=== PATIENT | female | born 1985 | race Caucasian/White ===

== ENCOUNTER 2024-02-06 01:16 | Emergency (ER) | payer OTHER, SELFPAY ==
[2024-02-06 01:18] VITALS: BP 185/110
[2024-02-06 02:24] VITALS: BMI 34.7
--- NOTE | 2024-02-06 02:52 | ED.GENMED ---
History of Present Illness
<RAVINDRA Cash - Last Filed: 02/06/24 05:30>
General
Chief Complaint: Back Pain
Source: patient and records
Time Seen by Provider: 02/06/24 02:37
Travel History
Have you had any contact with someone who has COVID-19?: No
Do you have any symptoms of coronavirus? Fever > 100 degrees, chills, cough, shortness of breath, sore throat, loss of taste or smell, muscle aches, or headache?: No
History of Present Illness
History of Present Illness:
38 year old female with hx of seizures on lamictal, hypothyroidism, constipation, back pain s/p discectomy on 10/07/23 who presents with bilateral flank pain that began at 1999. Pt states she initially had abdominal cramping at 170Tuesday,
which she attributed to not eating anything that day. States she only had a cup of coffee in the morning and a bottled water throughout the day. At 1999, she had sudden onset of bilateral flank pain that is constant, stabbing, sharp. At times, pain
radiates to the epigastric region bilaterally. She has not taken anything for the pain. She has not felt this pain before. She reports associated nausea and vomiting this evening. Denies fever/chills, chest pain, heartburn, dysuria, hematuria,
diarrhea. She states she has a hx of constipation and has a BM 3 times a month. Admits to decreased appetite for the past couple of days. Reports SOB secondary to feeling anxious. LMP 1.5 weeks ago, regular.
Past History
<RAVINDRA Cash - Last Filed: 02/06/24 05:30>
Past History
ED Past Medical History: Seizures and Hyperthyroidism
ED Past Surgical History: Other (Thyroidectomy)
Social History
Tobacco: Non-smoker
Alcohol: None
Personal: Single
Living: with family
Employment: Employed
Family History
Family History: Other (Family history of diverticulosis); Negative Diabetes
Review of Systems
<ST ShreyaHI - Last Filed: 02/06/24 05:30>
Review of Systems
Allergies reviewed?: Yes
All Other Systems: ROS reviewed and negative except as documented in HPI and ROS
Constitutional: Reports no symptoms
EENT: Reports no symptoms
Cardiac: Reports no symptoms
ABD/GI: Reports abdominal pain, nausea, vomiting and constipated
: Reports no symptoms
Musculoskeletal: Reports back pain
Skin: Reports no symptoms
Neurological: Reports no symptoms
Endocrine: Reports no symptoms
Hematologic/Lymphatic: Reports no symptoms
Psychiatric: Reports anxiety
Phy Exam
<RAVINDRA Cash - Last Filed: 02/06/24 05:30>
General Physical Exam
General Presentation: mild distress
General age: appears stated age
General Skin: warm and dry
General Habitus: obese
General Mental: alert
General Hydration: appears well hydrated
Cardiovascular Exam
Cardiovascular Exam: regular rate/rhythm, no edema, no gallop and no murmur
Pulmonary Exam
Pulmonary Exam: lungs clear, no respiratory distress, no rales, no crackles, no rhonchi, no wheezing and no cough
Gastrointestinal Exam
Gastrointestinal Exam: normal bowel sounds, soft, no pulsatile mass, cva tenderness (bilaterally) and other (moderate epigastric tenderness to palpation)
Skin Exam
Skin Exam: normal color, warm/dry and other (midline vertical incision to lower back)
Psychiatric Exam
Psychiatric Exam: anxious
Course
<RAVINDRA Cash - Last Filed: 02/06/24 05:30>
Orders/Labs/Results
Orders:
Orders
02/06/24 02:35
Test Result ONCE
02/06/24 02:44
Complete Blood Count/With Diff Urgent
Comprehensive Metabolic Panel Urgent
HCG, Serum Qualitative Screen Urgent
Lipase Urgent
02/06/24 03:26
0.9% Sodium Chloride 1000 ml [Nss] 1,000 ml IV BOLUS
Ketorolac [Toradol] 30 mg IV NOW STA
Ondansetron Injectable [Zofran] 4 mg IV NOW STA
02/06/24 03:27
US Abdomen Complete/Upper Urgent
Comment:
Reason For Exam: acute epigastric RUQ pain
02/06/24 04:30
Urinalysis Reflex To Culture Urgent
Date Specimen was Collected: 02/06/24
Time Specimen was Collected: 02:29
Urine Microscopic Reflex Cult Urgent
Urine Culture Urgent
DAKOTAH Source: U
Specimen Description:
Date Specimen was Collected: 02/06/24
Time Specimen was Collected: 02:29
02/06/24 05:29
Pantoprazole [Protonix IV] 40 mg IV NOW STA
Abnormal Lab Results
02/06/24 02/06/24
02:44 04:30
Hct 36.8 L %
(37.0-47.0)
Monocytes % 10.0 H %
(1.7-9.3)
Lipase 310 H U/L
(23-300)
Urine Ketones Trace A
(Negative)
Ur Occult Blood Reflex Trace A
(Negative)
Leukocyte Esterase Rfl Trace A
(Negative)
Urine WBC (Reflex) 11-15 A /HPF
(0-5)
Urine Bacteria (Reflex) Many A
(Negative)
02/06/24 02:44
02/06/24 02:44
Vital Signs
Initial and Last Documented VS:
Initial Vital Signs
Temp Pulse Resp BP Pulse Ox
98.7 F 94 26 185/110 100
02/06/24 01:18 02/06/24 01:18 02/06/24 01:18 02/06/24 01:18 02/06/24 01:18
Last Documented Vital Signs
Temp Pulse Resp BP Pulse Ox
98.7 F 76 18 118/76 97
02/06/24 01:18 02/06/24 05:07 02/06/24 05:07 02/06/24 05:07 02/06/24 05:07
<María Akhtar DO - Last Filed: 02/06/24 05:37>
Orders/Labs/Results
Orders:
Orders
02/06/24 02:35
Test Result ONCE
02/06/24 02:44
Complete Blood Count/With Diff Urgent
Comprehensive Metabolic Panel Urgent
HCG, Serum Qualitative Screen Urgent
Lipase Urgent
02/06/24 03:26
0.9% Sodium Chloride 1000 ml [Nss] 1,000 ml IV BOLUS
Ketorolac [Toradol] 30 mg IV NOW STA
Ondansetron Injectable [Zofran] 4 mg IV NOW STA
02/06/24 03:27
US Abdomen Complete/Upper Urgent
Comment:
Reason For Exam: acute epigastric RUQ pain
02/06/24 04:30
Urinalysis Reflex To Culture Urgent
Date Specimen was Collected: 02/06/24
Time Specimen was Collected: 02:29
Urine Microscopic Reflex Cult Urgent
Urine Culture Urgent
DAKOTAH Source: U
Specimen Description:
Date Specimen was Collected: 02/06/24
Time Specimen was Collected: 02:29
02/06/24 05:29
Pantoprazole [Protonix IV] 40 mg IV NOW STA
Abnormal Lab Results
02/06/24 02/06/24
02:44 04:30
Hct 36.8 L %
(37.0-47.0)
Monocytes % 10.0 H %
(1.7-9.3)
Lipase 310 H U/L
(23-300)
Urine Ketones Trace A
(Negative)
Ur Occult Blood Reflex Trace A
(Negative)
Leukocyte Esterase Rfl Trace A
(Negative)
Urine WBC (Reflex) 11-15 A /HPF
(0-5)
Urine Bacteria (Reflex) Many A
(Negative)
02/06/24 02:44
02/06/24 02:44
Vital Signs
Initial and Last Documented VS:
Initial Vital Signs
Temp Pulse Resp BP Pulse Ox
98.7 F 94 26 185/110 100
02/06/24 01:18 02/06/24 01:18 02/06/24 01:18 02/06/24 01:18 02/06/24 01:18
Last Documented Vital Signs
Temp Pulse Resp BP Pulse Ox
98.7 F 76 18 118/76 97
02/06/24 01:18 02/06/24 05:07 02/06/24 05:07 02/06/24 05:07 02/06/24 05:07
<RAVINDRA Cash - Last Filed: 02/06/24 05:30>
MDM/Problems Addressed
Differential Diagnosis Includes:
pancreatitis, nephrolithiasis, cholecystitis, biliary colic
MDM/Problems Addressed:
38 year old female who presents with bilateral flank pain radiating to the epigastric region that began at 1999.
Chronic conditions affecting care: Neurological disorder (seizures) and Psychiatric illness (anxiety, depression)
<RAVINDRA Cash - Last Filed: 02/06/24 05:30>
*Critical Care Note
Total Time (30-74mins, 75-104mins- exclusive of procedures): Not Applicable
<María Akhtar DO - Last Filed: 02/06/24 05:37>
*Radiology
Radiology exam reviewed: radiology read reviewed
*Pulse Oximetry
Patient hypoxic: no
ED Attending Note
<RAVINDRA Cash - Last Filed: 02/06/24 05:30>
-
Portions of this chart may have been created with voice recognition software.� Occasional wrong word or��sound alike� substitutions may have occurred due to the inherent limitations of voice recognition software.
<María Akhtar DO - Last Filed: 02/06/24 05:37>
ED Attending Note
Patient seen and examined by attending physician: Yes
I performed the substantive portion of visit, reviewed & personally made and approve the management plan that is documented in note by myself or YISEL.: Yes
I performed a history and physical exam of patient and discussed management with resident, I reviewed resident's note and agree with documented findings and plan of care.: Yes
ED Attending Note:
This is a 38-year-old obese woman who complains of bilateral mid to lower flank pain, bilateral back pain that began yesterday evening, persisted in nature. Bilateral back pain wraps around to her upper abdomen with intermittent sharp stabbing
epigastric discomfort along with generalized upper abdominal aching pain.
She does have history of chronic low back pain/lumbar radiculopathy but states her lower back pain has been markedly improved/resolved after lumbar discectomy September of this year.
Current back pain feels quite different from her previous lower back pain.
She does admit to having difficulty getting comfortable tonight but pain is not necessarily worse with movement. She denies leg pain or weakness nor numbness.
She does admit to intermittent episodes of vomiting which she states is a common occurrence when she has pain. She denies feeling nauseous. She has had no hematemesis.
Passed a normal bowel movement 1 day ago.
She denies dysuria and urgency and or hematuria.
She denies chest pain or coughing or shortness of breath.
She has not been taking anything for pain.
Last menstrual period 1 and half weeks ago, normal and on time. She denies risk of .
GENERAL: 38-year-old woman appears her stated age, awake and alert, appears moderately uncomfortable, mildly restless but cooperative. Moderately hypertensive initially, hypertension has near normalized without intervention.
EYE: anicteric
NECK: Supple, nontender, no meningismus, no significant adenopathy.
ENT: oral mucosa is moist. No rhinorrhea.
CARDIAC: Regular rate and rhythm. no murmur.
LUNGS: Clear breath sounds bilaterally, no acute respiratory distress, no wheezes/rales/rhonchi
ABDOMEN: Rotund, soft, nondistended, mild tenderness epigastric as well as right upper quadrant, no r/g, no cvat. normoactive BS.
BACK: Mild bilateral lower lumbar tenderness to palpation. There is no midline tenderness. Straight leg raising is negative bilaterally.
NEUROLOGICAL: Alert and oriented x3, no focal neuro deficits. Gait is steady.
SKIN: Warm and dry, normal color, skin intact. No rash.
MUSCULOSKELETAL: No C/C/E. peripheral pulses are full and equal b/l. No palpable tenderness.
PSYCH: Normal and appropriate interaction.
Concern for acute cholecystitis, acute pancreatitis, other consideration is renal colic/kidney stone, pyelonephritis, low back musculoskeletal pain.
Thus far CBC is unremarkable.
Chemistries and urinalysis are pending.
Will medicate for pain and nausea with Toradol and Zofran initiate IV fluids.
Will plan for abdominal ultrasound. Depending on results and ultrasound will consider CT.
02/06/2024 0530 AM
Patient is pain-free and comfortable after an IV dose of Toradol. Resting comfortably.
Chemistries show minimally elevated lipase of 310. Urinalysis shows many bacteria, 11-15 WBCs, negative RBCs but this is a contaminated specimen with greater than 30 squamous epithelial cells. She continues to have no UTI symptoms and remains
afebrile. No CVA tenderness on exam.
Ultrasound shows gallbladder sludge with gallbladder wall measuring upper limits of normal. No pericholecystic fluid. Bilateral kidneys are unremarkable. Suboptimal visualization of the pancreas and liver.
I suspect acute upper abdominal pain, nausea and vomiting and somewhat restlessness related to acute biliary colic.
With minimally elevated lipase and patient noting decreased appetite over the past several days, she may have an element of gastritis. Acute pancreatitis is unlikely.
Recommend strict low-fat/nonfat diet and will add a short course of Protonix for potential gastritis.
Will refer to general surgery for follow-up.
Return precautions discussed.
Discharge Plan
Departure
Patient Disposition: Home (Routine Discharge)
Date of Disposition: 02/06/24
Time of Disposition: 05:30
Patient with high blood pressure during this ER visit?: No
Discharge Problem:
Acute biliary colic, Sludge in gallbladder, Acute gastritis
Instructions: Gastritis ED, Gallstones ED, Low-fat diet
Prescriptions:
New
pantoprazole [Protonix] 40 mg tablet,delayed release (DR/EC)
40 mg PO DAILY Qty: 30 0RF
No Action
levothyroxine 150 MCG tablet
150 mcg PO DAILY
lamotrigine 100 MG tablet
150 mg PO BID
escitalopram oxalate 10 MG tablet
10 mg PO DAILY
[id number] fum-folic 1 EACH tablet
1 ea PO DAILY
labetalol 200 MG tablet
200 mg PO BID Qty: 60 1RF
ibuprofen 600 MG tablet
600 mg PO Q4HPRN PRN (Reason: moderate pain/cramps) 0RF
lamotrigine 25 mg tablet
50 mg PO BID 14 Days Qty: 56 0RF
lamotrigine [Lamictal] 200 mg tablet
200 mg PO BID Qty: 60 0RF
Referrals:
Fareed Mendez DO [Family Provider] - Call in 1-3 days for appt
Allen Barton MD [Active] - Call in 1-3 days for appt
Interventions
Interventions:
*Risk Screen - Suicide Last Done: 02/06/24 01:18
*General Assessment Last Done: 02/06/24 02:24
*Neglect/Abuse Screening Last Done: 02/06/24 01:18
ZX-Vtykhi-Uusircqwrk Assessment Last Done: 02/06/24 02:25
ED-Musculoskeletal Assessment Last Done: 02/06/24 02:25
Discharge Date and Time
Print Language: [place]ORE[place]
[2024-02-06 03:01] VITALS: BP 122/91
[2024-02-06 03:03] LABS: % Basophils 0.8 % (0-2); % Eosinophils 5.7 % (0-6); % Lymphocytes 41.1 % (20.5-51.1); % Neutrophils 42.4 % (42.2-75.2); Absolute Eosinophils 0.3 10^3/uL (0-0.7); Absolute Monocytes 0.5 10^3/uL (0.1-0.6); Absolute Neutrophils 2.1 10^3/uL (1.4-6.5); Hematocrit 36.8 % (37.0-47.0); Hemoglobin 13.4 g/dL (12.0-16.0); Mean Corp Hgb Conc. 36.4 g/dL (33.0-37.0); Mean Corpuscular Hgb 29.8 pg (27.0-31.0); Mean Corpuscular Volume 81.8 fL (81.0-99.0); Mean Platelet Volume 9.7 fL (7.4-10.4); Nucleated Red Blood Cells % 0 %; Platelet Count 336 10^3/uL (130-400); Red Cell Dist. Width 11.5 % (11.5-14.5); White Blood Cell Count 4.9 10^3/uL (4.8-10.8)
[2024-02-06 03:19] LABS: ALT (SGPT) 23 U/L (0-35); AST (SGOT) 25 U/L (14-36); Alkaline Phosphatase 72 U/L (38-126); Blood Urea Nitrogen 12 mg/dl (7-17); Calcium 10.1 mg/dl (8.4-10.2); Carbon Dioxide 26 mmol/L (22-30); Chloride 106 mmol/L (98-107); Estimated Creatinine Clearance 104 ml/min; Glucose 91 mg/dl (70-99); Lipase 310 U/L (23-300); Potassium 4.1 mmol/L (3.5-5.1); Sodium 145 mmol/L (135-145); Total Bilirubin 0.5 mg/dl (0.2-1.3); Total Protein 7.5 g/dl (6.3-8.2); eGFR > 60.00
[2024-02-06 03:20] LABS: HCG, Serum Qualitative Screen Negative
[2024-02-06] MEDS: NSS 1000 IV (03:33)
[2024-02-06] MEDS: TORADOL 30 MG IV (03:34)
[2024-02-06] MEDS: ZOFRAN 4 MG IV (03:36)
[2024-02-06 04:39] LABS: Urine Albumin Negative (Neg - Trace); Urine Bilirubin Negative (Negative); Urine Character Slightly Cloudy (Clear); Urine Color Yellow; Urine Glucose Negative (Negative); Urine Ketone Trace (Negative); Urine Leukocyte Trace (Negative); Urine Nitrite Negative (Negative); Urine Occult Blood Trace (Negative); Urine Urobilinogen Negative (Neg - 1+)
[2024-02-06 05:07] VITALS: BP 118/76
[2024-02-06 05:08] LABS: Urine Mucus Moderate; Urine Squamous Cell >30 /LPF (Few)
[2024-02-06 05:10] LABS: Urine Bacteria Many (Negative); Urine Red Blood Cell 0-2 /HPF (0-2)
[2024-02-06] MEDS: PROTONIX IV 40 MG IV (05:38)
== END 2024-02-06 05:58 | disposition home or self-care (01) ==
LOC: EMR 01:16
PROVIDERS: EMERGENCY PHYSICIAN Emergency Medicine; FAMILY PHYSICIAN Family Medicine
DX: R11.2 Nausea with vomiting, unspecified (principal); R06.02 Shortness of breath; K59.00 Constipation, unspecified; K80.50 Calculus of bile duct without cholangitis or cholecystitis without obstruction; K29.00 Acute gastritis without bleeding; F41.9 Anxiety disorder, unspecified; R56.9 Unspecified convulsions; E05.90 Thyrotoxicosis, unspecified without thyrotoxic crisis or storm
CPT/HCPCS: 99284; 96374; 96375 ×2; 96361; 76700; 80053; 81003; 81015; 83690; 84703; 85025; 87086

== ENCOUNTER 2024-04-12 21:48 | Emergency (ER) | payer OTHER, SELFPAY ==
[2024-04-12 21:48] VITALS: BMI 30.4
[2024-04-12 21:49] VITALS: BP 160/91
[2024-04-12 22:17] VITALS: BP 143/107
--- NOTE | 2024-04-12 22:31 | ED.GENMED ---
History of Present Illness
<RAVINDRA Urbina - Last Filed: 04/13/24 02:03>
General
Chief Complaint: Seizure
Source: patient and significant other
Time Seen by Provider: 04/12/24 22:08
History of Present Illness
History of Present Illness:
Patient is a 39 y/o female with PMHx of seizures, migraines, anxiety, depression, and hypothyroidism presenting because she believes she had two seizures today. She states she has a history of seizures but has not had one in over 1.5 years. She
states today she had one episode at 2:30pm and one episode at 8:30pm. She states neither episode was witnessed and she does not know what happened during these episodes. She states typically after seizures she experiences leg cramps, body soreness,
nausea, and vomiting which she began feeling today. She also states she bit her tongue but has no recollection of it. Her is present and states during the second episode he was in the shower but when he got out she was still having effects
of it. She states she has had increased stress recently which she believes has caused seizures in the past. She states she was also nauseous earlier today and took Zofran this morning. She states she has also been experiencing urinary urgency and
incomplete emptying which she has been taking Azo for this week. She currently admits to a headache which she deals with daily, nausea, calf cramps, and body soreness. She denies any vision changes, dizziness, chest pain, shortness of breath,
abdominal pain, diarrhea.
Past History
<RAVINDRA Urbina - Last Filed: 04/13/24 02:03>
Past History
ED Past Medical History: Seizures and Hyperthyroidism
ED Past Surgical History: Other (Thyroidectomy)
Social History
Tobacco: Non-smoker
Alcohol: None
Personal: Single
Living: with family
Employment: Employed
Family History
Family History: Other (Family history of diverticulosis); Negative Diabetes
Phy Exam
<Ramírez Stein [facility] - Last Filed: 04/13/24 02:03>
Physical Exam
Physical Exam:
GENERAL: Alert , in no apparent distress
Head: no deformities, lumps, bruises.
Mouth: small cut notes to the lateral tongue.
EYE: pupils equal and reactive
Throat: Airway intact, no exudates
NECK: Supple, no significant adenopathy.
CARDIAC: Mildly tachycardic. Normal rhythm .
LUNGS: Clear breath sounds bilaterally, no acute respiratory distress, no wheezes/rales/rhonchi
ABDOMEN: Soft, nondistended, nontender, no cvat
NEUROLOGICAL: Alert and oriented, no focal neuro deficits
SKIN: Warm and dry, skin intact.
MUSCULOSKELETAL: No edema, well perfused.
PSYCH: Normal and appropriate interaction.
Course
<Ramírez Stein [facility] - Last Filed: 04/13/24 02:03>
Orders/Labs/Results
Orders:
Orders
04/12/24 21:57
Electrocardiogram (*1) Routine
Reason for Study: Tachycardia
Test Result ONCE
04/12/24 22:44
Complete Blood Count/With Diff Urgent
Comprehensive Metabolic Panel Urgent
HCG, Serum Qualitative Screen Urgent
Comment: Notify provider if positive test present
Lamictal [Lamotrigine (Lamictal)] [S] Urgent
04/12/24 23:00
UA Reflex to Culture [Urinalysis Reflex To Culture] Urgent
Date Specimen was Collected: 04/12/24
Time Specimen was Collected: 23:59
04/12/24 23:23
Free T4 Urgent
TSH Reflex To Free T4 Urgent
04/12/24 23:29
0.9% Sodium Chloride 1000 ml [Nss] 1,000 ml IV BOLUS
04/12/24 23:30
Acetaminophen [Tylenol] 650 mg PO NOW STA
Ondansetron Orally Disint [Zofran Odt (Orally Disintegrating)] 4 mg PO NOW STA
Abnormal Lab Results
04/12/24 04/12/24 04/13/24
22:44 23:23 00:00
Hct 36.7 L %
(37.0-47.0)
MCV 78.6 L fL
(81.0-99.0)
MCHC 37.3 H g/dL
(33.0-37.0)
Absolute Neuts (auto) 6.6 H 10^3/uL
(1.4-6.5)
Absolute Lymphs (auto) 1.0 L 10^3/uL
(1.2-3.4)
Neutrophils % 78.8 H %
(42.2-75.2)
Lymphocytes % 11.3 L %
(20.5-51.1)
Carbon Dioxide 16 L mmol/L
(22-30)
Calcium 10.7 H mg/dl
(8.4-10.2)
Albumin 5.5 H g/dl
(3.5-5.0)
TSH (Reflex) < 0.02 L uIU/ml
(0.47-4.68)
Free T4 2.96 H ng/dl
(0.78-2.19)
Urine Ketones 3+ A
(Negative)
04/12/24 22:44
04/12/24 22:44
Vital Signs
Initial and Last Documented VS:
Initial Vital Signs
Temp Pulse Resp BP Pulse Ox
98.4 F 131 16 160/91 98
04/12/24 21:49 04/12/24 21:49 04/12/24 21:49 04/12/24 21:49 04/12/24 21:49
Last Documented Vital Signs
Temp Pulse Resp BP Pulse Ox
98.4 F 107 17 128/84 98
04/12/24 21:49 04/13/24 01:15 04/13/24 01:15 04/13/24 01:00 04/13/24 01:15
<Allen Singh, DO - Last Filed: 04/13/24 02:05>
Orders/Labs/Results
Orders:
Orders
04/12/24 21:57
Electrocardiogram (*1) Routine
Reason for Study: Tachycardia
Test Result ONCE
04/12/24 22:44
Complete Blood Count/With Diff Urgent
Comprehensive Metabolic Panel Urgent
HCG, Serum Qualitative Screen Urgent
Comment: Notify provider if positive test present
Lamictal [Lamotrigine (Lamictal)] [S] Urgent
04/12/24 23:00
UA Reflex to Culture [Urinalysis Reflex To Culture] Urgent
Date Specimen was Collected: 04/12/24
Time Specimen was Collected: 23:59
04/12/24 23:23
Free T4 Urgent
TSH Reflex To Free T4 Urgent
04/12/24 23:29
0.9% Sodium Chloride 1000 ml [Nss] 1,000 ml IV BOLUS
04/12/24 23:30
Acetaminophen [Tylenol] 650 mg PO NOW STA
Ondansetron Orally Disint [Zofran Odt (Orally Disintegrating)] 4 mg PO NOW STA
Abnormal Lab Results
04/12/24 04/12/24 04/13/24
22:44 23:23 00:00
Hct 36.7 L %
(37.0-47.0)
MCV 78.6 L fL
(81.0-99.0)
MCHC 37.3 H g/dL
(33.0-37.0)
Absolute Neuts (auto) 6.6 H 10^3/uL
(1.4-6.5)
Absolute Lymphs (auto) 1.0 L 10^3/uL
(1.2-3.4)
Neutrophils % 78.8 H %
(42.2-75.2)
Lymphocytes % 11.3 L %
(20.5-51.1)
Carbon Dioxide 16 L mmol/L
(22-30)
Calcium 10.7 H mg/dl
(8.4-10.2)
Albumin 5.5 H g/dl
(3.5-5.0)
TSH (Reflex) < 0.02 L uIU/ml
(0.47-4.68)
Free T4 2.96 H ng/dl
(0.78-2.19)
Urine Ketones 3+ A
(Negative)
04/12/24 22:44
04/12/24 22:44
Vital Signs
Initial and Last Documented VS:
Initial Vital Signs
Temp Pulse Resp BP Pulse Ox
98.4 F 131 16 160/91 98
04/12/24 21:49 04/12/24 21:49 04/12/24 21:49 04/12/24 21:49 04/12/24 21:49
Last Documented Vital Signs
Temp Pulse Resp BP Pulse Ox
98.4 F 107 17 128/84 98
04/12/24 21:49 04/13/24 01:15 04/13/24 01:15 04/13/24 01:00 04/13/24 01:15
<RAVINDRA Urbina - Last Filed: 04/13/24 02:03>
MDM/Problems Addressed
Differential Diagnosis Includes:
Differential diagnosis includes but is not limited to seizure secondary to electrolyte abnormality, stress, UTI, overactive thyroid.
<Allen Singh DO - Last Filed: 04/13/24 02:05>
MDM/Problems Addressed
MDM/Problems Addressed:
TSH is undetectable. This is consistent with her previous 2 ER visits where TSH was tested.
<RAVINDRA Urbina - Last Filed: 04/13/24 02:03>
*Pulse Oximetry
Patient hypoxic: no
*EKG
Interpreted by ED Provider?: Yes
EKG Intrepretation Date: 04/12/24
Interpretation: abnormal
Comparison EKG: changes noted (Nonspecific T wave abnormalities)
Heart Rate: 106
Rate: tachycardiac
Rhythm: sinus tachycardia
[place]: normal axis
Interval: other (Nonspecific T wave abnormalities)
QRS Pattern: normal QRS
Ischemia: no ischemia
*Creative Engagement Director Interpretation
Rate: Creative Engagement Director- N/A
*Critical Care Note
Total Time (30-74mins, 75-104mins- exclusive of procedures): Not Applicable
<RAVINDRA Urbina - Last Filed: 04/13/24 02:03>
Update Note
Update Note:
Patient feeling better after Tylenol, fluids, and Zofran. Lab work shows no gross electrolyte abnormalities. TSH and T4 levels unchanged compared to 02/06/24. UA shows no infectious process. Patient stable for discharge w/ neurology f/u.
ED Attending Note
<RAVINDRA Urbina - Last Filed: 04/13/24 02:03>
-
Portions of this chart may have been created with voice recognition software.� Occasional wrong word or��sound alike� substitutions may have occurred due to the inherent limitations of voice recognition software.
<Allen Singh DO - Last Filed: 04/13/24 02:05>
ED Attending Note
Patient seen and examined by attending physician: Yes
I performed the substantive portion of visit, reviewed & personally made and approve the management plan that is documented in note by myself or YISEL.: Yes
ED Attending Note:
39-year-old female presents after having 2 seizures today. She states that the first 1 was at 2:30 PM. Second was at 8:30 PM. Patient states that her she had her typical pre seizure feelings. The first seizure was not witnessed the second was
partially witnessed by her significant other. Patient denies head injury. She states that these seizures were typical for her. Her last known seizure was 1-1/2 years ago. 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 [employer] form was
filled out and faxed in no patient did not have her intermodal owner operator truck driver's license with her. Patient was seen in conjunction with the PA student. I have reviewed and agree with the history and treatment plan presented. On my independent physical exam, patient
is awake, alert, and oriented x3, minimal to no acute distress. She states that she does have mild headache. Pupils are slightly dilated. Heart is regular rate and rhythm. Lungs are clear to auscultation bilaterally with no wheezes rales or
rhonchi. Skin is warm and dry. She has movement of all 4 extremities.
Plan is to check lab work. Consult neurology. No CT scan indicated at this time.
04/13/2024 0157 AM: Patient has been resting comfortably. No acute distress. Neurology did not respond to Kamas text. Patient does have follow-up appointment with Dr. Martinez. Again discussed the [employer] form. She will not drive a motor
vehicle. Patient's significant other will be driving her home.
Discharge Plan
Departure
Patient Disposition: Home (Routine Discharge)
Date of Disposition: 04/13/24
Time of Disposition: 02:04
Patient with high blood pressure during this ER visit?: Yes
Condition: Good
Discharge Problem:
Seizure
Instructions: Seizures, Adult (DC), BLOOD PRESSURE
Prescriptions:
New
Valtoco 5 mg/spray (0.1 mL) spray,non-aerosol
5 mg intranasal Q6 Qty: 2 0RF
No Action
levothyroxine 150 MCG tablet
150 mcg PO DAILY
ibuprofen 600 MG tablet
600 mg PO Q4HPRN PRN (Reason: moderate pain/cramps) 0RF
lamotrigine [Lamictal] 200 mg tablet
200 mg PO BID Qty: 60 0RF
clonazepam [Klonopin] 2 mg Tablet
2 mg PO BID
Referrals:
Fareed Mendez, DO [Family Provider] -
Екатерина Martinez MD [Non-Admitting Privileges] - Next open appointment
Activity Restrictions/Additional Instructions:
As discussed, [place] [employer] form [id number] was filed. Please do not drive a motor vehicle until cleared by your neurologist. Please schedule an appointment with Dr. Martinez.
It was a pleasure meeting you and taking part in your care. We hope for your continued healing and wellness.
Please read discharge instructions in their entirety. However, they are for general education and may not describe your exact diagnosis at discharge. Information on your ER visit and medical conditions were discussed with you along with appropriate
follow up information...
If indicated, please take your medications as instructed and indicated on discharge paperwork.
Please schedule a follow up appointment as directed. Call to schedule an appointment
Please return to the emergency department with ANY change in, persisting, or worsening of symptoms. If any of your symptoms do not improve, or persist, or become more severe within 6-12 hours, please return to the emergency department for further
care.
Please return to the emergency department if you develop a headache, neck pain/stiffness, fever greater than 100.4F, chest pain, shortness of breath, persistent nausea, vomiting, slurred speech, difficulty walking, numbness/tingling, weakness, signs
of infection or any other symptoms that are worrisome to you.
If you have any questions or concerns please do not hesitate to call the Hospital at or E-mail me directly at [email or web address]
Interventions
Interventions:
*Risk Screen - Suicide Last Done: 04/12/24 21:49
*General Assessment Last Done: 04/12/24 22:35
*Neglect/Abuse Screening Last Done: 04/12/24 21:49
ED- Fall Risk Assessment Last Done: 04/12/24 22:35
*ED COVID-19 Vaccine History Last Done: 04/12/24 22:35
ED- Cardiac Assessment Last Done: 04/12/24 22:35
ED- Neurological Assessment Last Done: 04/12/24 22:35
ED- Pulmonary Assessment Last Done: 04/12/24 22:39
Discharge Date and Time
Print Language: BRUNEIAN
[2024-04-12 22:57] LABS: % Basophils 0.7 % (0-2); % Eosinophils 1.7 % (0-6); % Immature Granulocytes 0.5 % (0-0.5); % Lymphocytes 11.3 % (20.5-51.1); % Neutrophils 78.8 % (42.2-75.2); Absolute Basophils 0.1 10^3/uL (0-0.2); Absolute Eosinophils 0.1 10^3/uL (0-0.7); Absolute Monocytes 0.6 10^3/uL (0.1-0.6); Absolute Neutrophils 6.6 10^3/uL (1.4-6.5); Hematocrit 36.7 % (37.0-47.0); Hemoglobin 13.7 g/dL (12.0-16.0); Mean Corp Hgb Conc. 37.3 g/dL (33.0-37.0); Mean Corpuscular Hgb 29.3 pg (27.0-31.0); Mean Corpuscular Volume 78.6 fL (81.0-99.0); Mean Platelet Volume 9.4 fL (7.4-10.4); Nucleated Red Blood Cells % 0 %; Platelet Count 328 10^3/uL (130-400); Red Blood Cell Count 4.67 10^6/uL (4.20-5.40); Red Cell Dist. Width 11.7 % (11.5-14.5); White Blood Cell Count 8.4 10^3/uL (4.8-10.8)
[2024-04-12 23:00] VITALS: BP 128/100
[2024-04-12 23:07] LABS: HCG, Serum Qualitative Screen Negative
[2024-04-12 23:09] LABS: ALT (SGPT) 15 U/L (0-35); AST (SGOT) 20 U/L (14-36); Albumin 5.5 g/dl (3.5-5.0); Alkaline Phosphatase 77 U/L (38-126); Blood Urea Nitrogen 8 mg/dl (7-17); Calcium 10.7 mg/dl (8.4-10.2); Carbon Dioxide 16 mmol/L (22-30); Chloride 102 mmol/L (98-107); Estimated Creatinine Clearance 109 ml/min; Glucose 88 mg/dl (70-99); Potassium 4.1 mmol/L (3.5-5.1); Sodium 136 mmol/L (135-145); Total Bilirubin 0.6 mg/dl (0.2-1.3); Total Protein 7.8 g/dl (6.3-8.2); eGFR > 60.00
[2024-04-12] MEDS: ZOFRAN ODT (ORALLY DISINTEGRATING) 4 MG PO (23:41)
[2024-04-12] MEDS: TYLENOL 650 MG PO (23:41)
[2024-04-12] MEDS: NSS 1000 IV (23:43)
[2024-04-13 00:01] VITALS: BP 142/101
[2024-04-13 00:09] LABS: Urine Albumin Trace (Neg - Trace); Urine Bilirubin Negative (Negative); Urine Character Clear (Clear); Urine Color Yellow; Urine Glucose Negative (Negative); Urine Ketone 3+ (Negative); Urine Leukocyte Negative (Negative); Urine Nitrite Negative (Negative); Urine Occult Blood Negative (Negative); Urine Specific Gravity 1.015 (<1.030); Urine Urobilinogen Negative (Neg - 1+)
[2024-04-13 00:26] LABS: TSH Reflex To Free T4 < 0.02 uIU/ml (0.47-4.68)
[2024-04-13 00:55] LABS: Free T4 2.96 ng/dl (0.78-2.19)
[2024-04-13 01:00] VITALS: BP 128/84
[2024-04-13 02:00] VITALS: BP 123/103
[2024-04-14 19:09] LABS: Lamotrigine (Lamictal) 7.9 ug/mL (3.0-15.0)
== END 2024-04-13 02:24 | disposition home or self-care (01) ==
LOC: EMR 21:48
PROVIDERS: Emergency Medicine; EMERGENCY PHYSICIAN Student in an Organized Health Care Education/Training Program; FAMILY PHYSICIAN Family Medicine
DX: G40.909 Epilepsy, unspecified, not intractable, without status epilepticus (principal); R11.2 Nausea with vomiting, unspecified; R25.2 Cramp and spasm; R39.15 Urgency of urination; R51.9 Headache, unspecified; Z73.3 Stress, not elsewhere classified; F41.9 Anxiety disorder, unspecified; F32.A Depression, unspecified; E03.9 Hypothyroidism, unspecified; R03.0 Elevated blood-pressure reading, without diagnosis of hypertension
CPT/HCPCS: 99284; 96360; 80053; 80175; 81003; 84439; 84443; 84703; 85025; 93005

== ENCOUNTER 2024-05-02 22:54 | Observation (INO) | payer OTHER, SELFPAY ==
[2024-05-02 16:50] VITALS: BP 149/96
[2024-05-02 17:27] LABS: % Basophils 1.1 % (0-2); % Eosinophils 6.4 % (0-6); % Immature Granulocytes 0.2 % (0-0.5); % Lymphocytes 29.5 % (20.5-51.1); % Neutrophils 55.8 % (42.2-75.2); Absolute Basophils 0.1 10^3/uL (0-0.2); Absolute Eosinophils 0.3 10^3/uL (0-0.7); Absolute Lymphocytes 1.3 10^3/uL (1.2-3.4); Absolute Monocytes 0.3 10^3/uL (0.1-0.6); Absolute Neutrophils 2.5 10^3/uL (1.4-6.5); Hematocrit 36.1 % (37.0-47.0); Hemoglobin 12.8 g/dL (12.0-16.0); Mean Corp Hgb Conc. 35.5 g/dL (33.0-37.0); Mean Corpuscular Volume 81.9 fL (81.0-99.0); Mean Platelet Volume 9.2 fL (7.4-10.4); Nucleated Red Blood Cells % 0 %; Platelet Count 355 10^3/uL (130-400); Red Blood Cell Count 4.41 10^6/uL (4.20-5.40); Red Cell Dist. Width 12.1 % (11.5-14.5); White Blood Cell Count 4.4 10^3/uL (4.8-10.8)
[2024-05-02 17:29] LABS: Urine Albumin Trace (Neg - Trace); Urine Bilirubin 1+ (Negative); Urine Character Clear (Clear); Urine Color Yellow; Urine Glucose Negative (Negative); Urine Ketone Negative (Negative); Urine Leukocyte Trace (Negative); Urine Nitrite Negative (Negative); Urine Occult Blood 1+ (Negative); Urine Urobilinogen 2+ (Neg - 1+)
[2024-05-02 17:36] LABS: HCG, Serum Qualitative Screen Negative
[2024-05-02 17:47] LABS: ALT (SGPT) 17 U/L (0-35); AST (SGOT) 19 U/L (14-36); Albumin 4.9 g/dl (3.5-5.0); Alkaline Phosphatase 84 U/L (38-126); Blood Urea Nitrogen 9 mg/dl (7-17); Calcium 9.9 mg/dl (8.4-10.2); Carbon Dioxide 21 mmol/L (22-30); Chloride 105 mmol/L (98-107); Glucose 92 mg/dl (70-99); Potassium 3.7 mmol/L (3.5-5.1); Sodium 145 mmol/L (135-145); Total Bilirubin 0.6 mg/dl (0.2-1.3); Total Protein 7.2 g/dl (6.3-8.2); eGFR > 60.00
[2024-05-02 17:48] LABS: Troponin I < 0.012 ng/ml
[2024-05-02 17:51] LABS: Urine Mucus Many
[2024-05-02 17:52] LABS: Urine Bacteria Few (Negative)
[2024-05-02 19:00] VITALS: BP 125/82
[2024-05-02 19:38] VITALS: BP 125/82
--- NOTE | 2024-05-02 19:50 | ED.GENMED ---
History of Present Illness
General
Chief Complaint: Dizziness
Source: patient
Exam Limitations: none
Time Seen by Provider: 05/02/24 19:38
History of Present Illness
History of Present Illness:
See MDM
Past History
Past History
ED Past Medical History: Seizures and Hyperthyroidism
ED Past Surgical History: Other (Thyroidectomy)
Social History
Tobacco: Non-smoker
Alcohol: None
Personal: Single
Living: with family
Employment: Employed
Family History
Family History: Other (Family history of diverticulosis); Negative Diabetes
Phy Exam
Physical Exam
Physical Exam:
See MDM
Course
Orders/Labs/Results
Orders:
Orders
05/02/24 16:53
Electrocardiogram (*1) Urgent
Reason for Study: Vertigo / Dizzy
CT Head W/o Iv Contrast Urgent
Comment:
Reason For Exam: dizziness
05/02/24 16:54
EKG- Treatment ONCE
Test Result ONCE
05/02/24 17:08
Complete Blood Count/With Diff Urgent
Comprehensive Metabolic Panel Urgent
HCG, Serum Qualitative Screen Urgent
Lamotrigine (Lamictal) [S] Urgent
Comment: FROM CBC LAV TUBE
TSH Reflex To Free T4 Urgent
Comment: ADD ON
Troponin I Urgent
Urinalysis Reflex To Culture Urgent
Date Specimen was Collected: 05/02/24
Time Specimen was Collected: 16:54
Urine Microscopic Reflex Cult Urgent
05/02/24 19:40
Add On- LAB Urgent
Tests Added?: Lamictal level
05/02/24 19:47
Add On- LAB Urgent
Tests Added?: TSH reflex Free T4
05/02/24 19:59
Add On- LAB Urgent
Tests Added?: Urine Drug Screen
Abnormal Lab Results
05/02/24
17:08
WBC 4.4 L 10^3/uL
(4.8-10.8)
Hct 36.1 L %
(37.0-47.0)
Eosinophils % 6.4 H %
(0-6)
Carbon Dioxide 21 L mmol/L
(22-30)
Ur Occult Blood Reflex 1+ A
(Negative)
Urine Bilirubin 1+ A
(Negative)
Urine Urobilinogen 2+ A
(Neg - 1+)
Leukocyte Esterase Rfl Trace A
(Negative)
Urine RBC 3-6 A /HPF
(0-2)
Urine Bacteria (Reflex) Few A
(Negative)
05/02/24 17:08
05/02/24 17:08
Vital Signs
Initial and Last Documented VS:
Initial Vital Signs
Temp Pulse Resp BP Pulse Ox
98.3 F 81 18 149/96 99
05/02/24 16:50 05/02/24 16:50 05/02/24 16:50 05/02/24 16:50 05/02/24 16:50
Last Documented Vital Signs
Temp Pulse Resp BP Pulse Ox
98.3 F 82 16 125/82 100
05/02/24 16:50 05/02/24 19:00 05/02/24 19:00 05/02/24 19:00 05/02/24 19:00
MDM/Problems Addressed
Differential Diagnosis Includes:
HPI and MDM Narrative:
39-year-old female presenting by PCPs office for evaluation of altered mental status and delirium. Over the past several days, patient has felt off. confirms this and states that she has intermittent slurred speech and she asked if she is
drunk. Patient denies alcohol consumption. Patient states she feels unsteady in her feet and feels wobbly. Patient denies any change in medications. She is on Lamictal and levothyroxine. I did discuss my concern this could be a side effect of
Lamictal. Patient had mentioned that she had a seizure 2 weeks ago.
Blood work and CT head were performed prior to my evaluation. No significant abnormalities noted. Given her current mental status, will admit for possible brain MRI and further workup
Physical exam
General: Well appearing and non-toxic
HEENT: protecting airway
Neck: appears supple
CV: No evidence of cyanosis. Regular rate and rhythm
Resp: No accessory muscle use
Abd: Non-distended
Extremities: No deformities
Neuro: alert. Slow to respond. Normal finger-nose. Negative Romberg
Psych: flat affect
Skin: Intact
Problems Addressed including Acute and Chronic Conditions affecting care:
1. Altered mental status
Acuity: acute
Prognosis: stable
Details: CT head negative. Blood work without significant abnormalities. Will check Lamictal level and admit for further workup
Differential Diagnosis (but not limited to): Stroke, drug abuse, adverse medication reaction
Testing considered: Brain MRI
Drug therapy (if applicable): OTC meds, please see d/c instruction regarding Rx drugs
Amount and/or Complexity of Data Reviewed
Clinical info obtained from: Patient
External data reviewed: N/A
Labs I independently reviewed (but not limited to): WBC 4.4
Radiology: The CT scan was personally and independently reviewed. In addition, official CT report reviewed.
Pulse Ox: not hypoxic
EKG independently reviewed: Sinus rhythm, normal axis, no STEMI
Manager Insurance: N/A
Critical Care: N/A
Risk of Complication:
Social Determinants of health: Good social support
Discussed with other providers: Hospitalist
Escalation of Care includes Admit/Obs: Given the undifferentiated altered mental status and delirium, will admit for further work
Occasional wrong word or 'sound a like' substitutions may have occurred due to the inherent limitations of voice recognition software. Read the chart carefully and recognize, using context, where substitutions have occurred.
*Critical Care Note
Total Time (30-74mins, 75-104mins- exclusive of procedures): Not Applicable
ED Attending Note
-
Portions of this chart may have been created with voice recognition software.� Occasional wrong word or��sound alike� substitutions may have occurred due to the inherent limitations of voice recognition software.
Discharge Plan
Departure
Patient Disposition: Admit
Date of Disposition: 05/02/24
Time of Disposition: 19:52
Admit to: Med/Surg
Presentation/result/management discussed w/ accepting MD/DO: Hospitalist
Discharge Problem:
Altered mental status
Prescriptions:
No Action
levothyroxine 150 MCG tablet
150 mcg PO DAILY
ibuprofen 600 MG tablet
600 mg PO Q4HPRN PRN (Reason: moderate pain/cramps) 0RF
lamotrigine [Lamictal] 200 mg tablet
200 mg PO BID Qty: 60 0RF
clonazepam [Klonopin] 2 mg Tablet
2 mg PO BID
Valtoco 5 mg/spray (0.1 mL) spray,non-aerosol
5 mg intranasal Q6 Qty: 2 0RF
Interventions
Interventions:
*Risk Screen - Suicide Last Done: 05/02/24 16:50
*General Assessment Last Done: 05/02/24 16:50
*Neglect/Abuse Screening Last Done: 05/02/24 16:50
ED- Fall Risk Assessment Last Done: 05/02/24 19:36
ED- Neurological Assessment Last Done: 05/02/24 19:36
ED- Cardiac Assessment Last Done: 05/02/24 19:36
Discharge Date and Time
Print Language: [id number]
[2024-05-02 20:18] LABS: Amphetamines Negative (Negative); Barbiturates Negative (Negative); Benzodiazepines Negative (Negative); Buprenorphine Negative (Negative); Cocaine Negative (Negative); Marijuana Positive (Negative); Methadone Negative (Negative); Methamphetamines Negative (Negative); Opiates Negative (Negative); Phencyclidine Negative (Negative); Tricyclic Antidepressants Negative (Negative)
[2024-05-02 20:48] LABS: TSH Reflex To Free T4 < 0.02 uIU/ml (0.47-4.68)
--- NOTE | 2024-05-02 21:12 | HPS.HSE ---
Family Physician
-
Family Physician: Fareed Mendez
Chief Complaint
-
Fatigue, dizziness, off balance, confusion
History of Present Illness
39-year-old female complaining of fatigue x 6 days with 5 days of feeling dizzy ,off balance, forgetting things putting things in the wrong place at home. Her states that her speech was a little bit slurred on Tuesday 3 days ago. She denies
any headache. She also reports since having her thyroid medication adjustment 2 months ago weight loss of 20 pounds, insomnia, anxiety, chronic fatigue, confusion. She does report she was seen in the emergency department 21 days ago on 04/12/2024
for 2 reported seizures., Since then she denies any seizure activity. She states her Lamictal was not adjusted she is currently on 200 mg twice daily. She currently does not have a neurologist due to change in insurance. She has not had a
Lamictal adjustment in over 1 year for history of seizures since age 20. She has also been using her Klonopin as needed versus twice daily. She reports she has not had any Klonopin approximately 3 weeks prior to that she was only taking 2-3 times
a week. She follows with Dr. Bermudez for endocrine due to Graves' disease. She had adjustment in her levothyroxine 150 mcg to 175 mcg daily approximately 2 months ago she believes. Her current TSH level is<0.02. She denies headache, sore
throat, fever, chills, chest pain, palpitations, shortness breath, cough, abdominal pain, nausea, vomiting, diarrhea, urinary symptoms.
She has PMH of migraines, seizures, Graves' disease, hypothyroidism status post total thyroidectomy 2011, constipation, swallowing difficulty, renal calculi, anxiety, depression, chronic back pain, insomnia, occasional marijuana use.
Medical History
Past Medical History
Past Medical History: Reports Other
Additional Past Medical History:
migraines,
seizures Dx age 20
Graves' disease
hypothyroidism status post total thyroidectomy 2011
Anxiety, depression
Occasional marijuana use
Chronic back pain
Insomnia
constipation
swallowing difficulty,
renal calculi
Past Surgical History: Reports Other
Additional Past Surgical History:
Total thyroidectomy 2011
History of trigger point injections back
Social History
Tobacco: Non-smoker
Alcohol: None
Drug: Marijuana
Personal:
Living: With Family
Employment: Other ([id number] mom of 2 year old )
Family History
Family History: Other (Mother history hypothyroidism, sister hypothyroidism, mother history of migraines, father history hypertension, vertigo)
Allergies / Home Medications
Allergies reflects when Allergies were last updated in [facility].
Home Medications with original date entered in [facility]
Allergy/Medication List:
Allergies
Allergy/AdvReac Type Severity Reaction Status Date / Time
No Known Allergies Allergy Verified 05/02/24 16:49
Home Medications
lamotrigine 200 mg tablet (Lamictal) 200 mg PO BID #60 tabs 11/22/22
clonazepam 2 mg tablet (Klonopin) 2 mg PO BID Anxiety 04/12/24
duloxetine 60 mg capsule,delayed release 60 mg PO DAILY 05/02/24
levothyroxine 175 mcg tablet 175 mcg PO DAILY 05/02/24
zolpidem 10 mg tablet 10 mg PO HSPRN PRN sleep 05/02/24
Review of Systems
-
History Source: Patient
A 12 point ROS was completed and negative except as noted: Yes
Constitutional: Reports Fatigue; Denies Fever, Weight Loss or Chills
EENT: Reports Other (Reported confusion forgetting things); Denies Sore Throat or Runny Nose
Respiratory: Denies Cough or Trouble Breathing
Cardiac: Denies Chest Pain, Diaphoresis, Palpitations or Syncope
Abdomen/GI: Denies Abdominal Pain, Nausea, Vomiting, Diarrhea, Constipated, Bloody Stools or Black Stools
: Denies Dysuria, Frequency, Flank Pain, Incontinence, Difficulty Voiding, Urgency, Bleeding or Dark Urine
Musculoskeletal: Denies Joint Pain, Joint Swelling or Edema
Skin: Denies Itching or Rash
Neurological: Reports Dizzy; Denies Headache or Weakness
Endocrine: Reports No Symptoms
Hematologic/Lymphatic: Reports No Symptoms
Psych: Reports Calm
Physical Exam
Vital Signs
Vital Signs
Temp Pulse Resp BP Pulse Ox
98.3 F 82 16 125/82 100
05/02/24 16:50 05/02/24 19:00 05/02/24 19:00 05/02/24 19:00 05/02/24 19:00
Physical Exam
General: Comfortable, Conversant and Other (Appears fatigued); No Pain or Chills
HEENT: NormoCephalic, Anicteric, Moist mucous membranes, PERRLA, [place] Conjunctivae and No Ptosis
Respiratory: Clear; No Wheezes, Rales or Rhonchi
Cardiac: S1/S2 and Regular Rhythm; No Murmur, Rub, Gallop or Peripheral Edema
Breast: Deferred by me
GI: Soft, Non Tender, Non Distended, Normal Bowel Sounds and No Hepatosplenomegaly
Rectal: Deferred by Provider
Genito-urinary: Deferred by me
Musculoskeletal: No Clubbing, No Cyanosis and No Edema
Skin: Warm and Dry; No Rash
Neuro: AO x 3, No Motor Deficits, Nonfocal/grossly intact, Cranial Nerves Intact, No Sensory Deficits and Other (Speaks very slowly); No Slurred Speech, Facial Droop, Tremors or Sedated
Laboratory Results
-
05/02/24 17:08
05/02/24 17:08
Laboratory Results
Total Bilirubin 0.6 mg/dl (0.2-1.3) 05/02/24 17:08
AST 19 U/L (14-36) 05/02/24 17:08
ALT 17 U/L (0-35) 05/02/24 17:08
Alkaline Phosphatase 84 U/L (38-126) 05/02/24 17:08
Troponin I < 0.012 ng/ml 05/02/24 17:08
Impression/Plan
-
Impression/plan:
Observation MedSurg
#Symptomatic Hypothyroidism due to recent Levothyroxine adjustment
#Graves' disease/Graves opthalmaopathy
#Total thyroidectomy 2011
Symptoms Generalized fatigue with dizziness , forgetfulness with weight loss 20 pounds 2 months , insomnia, anxiety
-Had adjustment of levothyroxine approximate 2 months ago from 150 mcg to 175 mcg daily patient follows with Dr. Bermudez endocrine
TSH <0.02,-Decrease levothyroxine from 175 mcg to levothyroxine 150 mcg p.o. daily
-Repeat TSH with free T4 in 6 weeks, follow-up outpatient with Dr. Bermudez or PCP
-PT/OT/case management eval
CT head no acute intracranial abnormality
#Hx Seizures since age 20
-Recent 2 seizures on 04/12/2024 with no medication adjustment does not have current neurologist due to switching insurance
-Check Lamictal level
-Continue Lamictal 200 mg twice daily
-Advised patient to call old neurologist to see if need for adjustment in Lamictal or find new neurologist with her 's current insurance
#Hx marijuana use
UDS positive marijuana-patient reports occasionally smokes flower buds
#Anxiety/ depression
-Continue Cymbalta 60 mg daily
-Patient not taking her Klonopin in the past 3 weeks reports would only take 2-3 times a week not 2 mg twice daily
-UDS no benzos present
# back pain
#Migraines hx -no current headache
#Insomnia
Hold Ambien 10 mg at bedtime as needed due to current confusion
Other PMH:
constipation
swallowing difficulty
renal calculi
DVT prophylaxis
SCDs
Full code
[2024-05-02 21:17] LABS: Free T4 2.63 ng/dl (0.78-2.19)
[2024-05-02 21:57] LABS: COVID-19 Antigen Negative (Negative)
[2024-05-02 22:13] VITALS: BP 123/70
--- NOTE | 2024-05-02 23:05 | W.PN.UPDATE ---
Update Note
Progress Note Update
Patient seen in conjunction with KANDACE. Agree with assessment and plan as well as the findings on physical exam and history.
This is a 59-year-old female with a past medical history of a seizure disorder thought to be secondary to traumatic brain injury and has been stably on amitriptyline for at least 1 year, history of hypothyroidism (had Graves' disease status post
total thyroidectomy)) who had a last seizure approximately 2 weeks ago now presents to the emergency department with 1 week history of mild disorientation. Patient herself reports feeling fatigued tired slightly sweaty and also occasionally feeling
cold. She denies palpitations, tachycardia. She does report increased anxiety. Patient has increased stressors taking care of of infant at home by herself. She reports that her spouse noted that she had some difficulty getting words out. No
observed seizure activity. No intercurrent infectious illness.
Patient reported that levothyroxine dose was increased about 2 months ago. At that time she had suppressed TSH and elevated free T4. Despite this finding levothyroxine was increased from 150 to 175.
On my exam the patient was alert and oriented. She had no focal neurological deficits. There was no aphasia or dysarthria. Lung exam was unremarkable. Cardiac exam was unremarkable. Abdominal exam was unremarkable.
CT of the head was negative. ECG with normal sinus rhythm. Labs notable for a markedly suppressed TSH of 0.02 and elevated free T4. Utox + for cannabis.
Assessment:
1. Encephalopathy - Suspect mild toxic encephalopathy due to hyperthyroidism. TSH very low with high fT4. She has no focal deficits. Has no confusion. No evidence of seizures. CT head normal
- monitor overnight for possible seizure
- continue lamictal ( level sent, but pending in 1 week)
- follow up with outpatient neurology
- management of thyroid meds as below
- hold of neurology consult unless symptoms appear
- avoid sedatives, cannabis
2. Hyperthyroid - Iatrogenic hyperthyroid in patient with graves s/p thyroidectomy. fT4 high, TSH low. No thyrotoxicosis.
- reduce levothyroxine to 150 and follow up with outpatient blood test and endocrine follow up
- no indication for beta blockade at this time.
rest of plan as per FOOD PRODUCTION ASSOCIATE note
full code
[2024-05-03 00:19] VITALS: BP 132/87; BMI 30.2
--- NOTE | 2024-05-03 01:08 | PTCARENOTE ---
Patient received from ED, AAOX3, ambulated from stretcher to bed. Flat affect noted. Apical regular, blood pressure as documented. Palpable pulses throughout, no edema noted. Lungs clear, pulse ox 100% on room air. Abdomen soft with positive
bowel sounds. #22 g in right hand flushed and patent. Plan of care discussed, call zhao within reach
[2024-05-03] MEDS: SYNTHROID 150 MCG PO (05:34)
--- NOTE | 2024-05-03 08:48 | W.PN.HOSP.TC ---
Addendum entered and electronically signed by Leonor Cunningham MD 05/03/24 12:56:
discussed case with Dr. Bermudez, and will lower Synthroid to 137mcg daily.
Original Note:
Today's Communication/Plan
-
see plan
Assessment / Plan
Assessment / Plan
This is a 59-year-old female with a past medical history of a seizure disorder thought to be secondary to traumatic brain injury and has been stably on amitriptyline for at least 1 year, history of hypothyroidism (had Graves' disease status post
total thyroidectomy)) who had a last seizure approximately 2 weeks ago now presents to the emergency department with 1 week history of mild disorientation. Patient herself reports feeling fatigued tired slightly sweaty and also occasionally feeling
cold. She denies palpitations, tachycardia. She does report increased anxiety. Patient has increased stressors taking care of of at home by herself. She reports that her spouse noted that she had some difficulty getting words out. No
observed seizure activity. No intercurrent infectious illness.
Patient reported that levothyroxine dose was increased about 2 months ago. At that time she had suppressed TSH and elevated free T4. Despite this finding levothyroxine was increased from 150 to 175.
Assessment:
1. Encephalopathy
- Suspect mild toxic encephalopathy due to hyperthyroidism. TSH very low with high fT4. She has no focal deficits. Has no confusion. No evidence of seizures. CT head normal
- no seizures overnight
- continue lamictal (level sent)
- follow up with outpatient neurology
- management of thyroid meds as below
- avoid sedatives, cannabis
2. Hyperthyroid
- Iatrogenic hyperthyroid in patient with graves s/p thyroidectomy. fT4 high, TSH low. No thyrotoxicosis.
- synthroid reduced to 150mcg
- I texted her oil well logging engineer, Dr. Bermudez this morning to confirm plan
- no indication for beta blockade at this time.
- repeat EKG this morning
rest of plan as per POWERHOUSE ENGINEER note
full code
Anticipated Discharge: Within 24 hours
Subjective/Interval History
-
Date of Service: May 03, 2024
feeling better this morning
able to coherently describe what took place
no current palpitations or chest pain
Objective Data
-
Vital Signs:
Vital Signs
Temp Pulse Resp BP Pulse Ox
97.8 F 80 16 132/87 100
05/03/24 00:19 05/02/24 22:13 05/03/24 00:19 05/03/24 00:19 05/03/24 01:14
Review of Systems
-
History Source: Patient
All other systems: Reviewed and negative
Physical Exam
-
General: No Apparent Distress
HEENT: PERRLA
Respiratory: Clear to Auscultation; Negative Wheezes
Cardiac: Regular Rhythm and S1/S2
GI: Soft and Nontender
Musculoskeletal: No Edema
Skin: Warm and Dry; Negative Rash
Neuro: AO x 3
Psych: Calm
Data Reviewed
-
Diagnostic Radiology: Report Reviewed by me
Labs: Labs Reviewed by me
[2024-05-03] MEDS: LAMICTAL 200 MG PO (09:05)
[2024-05-03] MEDS: CYMBALTA DELAYED RELEASE 60 MG PO (09:05)
--- NOTE | 2024-05-03 09:30 | PTCARENOTE ---
Received pt from night shift manager. aaox3, flat and tearful @ times when discussing hx of dx. VSS. EKG completed this am, normal sinus. Set up for hygiene care. Now resting in chair w/ call zhao in reach.
[2024-05-03 10:27] VITALS: BP 130/91
[2024-05-03 10:33] VITALS: BP 135/93
--- NOTE | 2024-05-03 14:24 | CM ---
Patient with Hx graves disease s/p thyroidectomy with Dx Suspected mild toxic encephalopathy due to hyperthyroidism. Per nurse assessment; AAOx3.
Spoke with patient who resides with her and 2 children in a 2 story house.
The patient has been independent in ADLs and ambulation.
The patient has no DME, prior VN.
PCP - Fareed Mendez
Pharmacy - [facility] [address]
The patient was preparing for discharge today, and states she feels ready to go home.
Her will provide transport home.
No CM d/c needs identified.
Plan home today.
--- NOTE | 2024-05-03 14:25 | W.DS.TRANS ---
DC Summary - Dairy Inspector
-
Discharge Instructions:
Discharge Diagnosis/Procedures hyperthyroidism
Diet Regular
Activity As tolerated
Driving Restrictions As prior to admission
Bathing Restrictions None
Instructions:
Stand-Alone Forms:
Changes to Home Medications: Yes
Discharge Medications:
DC Medications w/original date entered in [facility]
lamotrigine 200 mg tablet (Lamictal) 200 mg PO BID #60 tabs 11/22/22
duloxetine 60 mg capsule,delayed release 60 mg PO DAILY Mental Health/Anxiety 05/02/24
zolpidem 10 mg tablet 10 mg PO HSPRN PRN sleep 05/02/24
clonazepam 2 mg tablet (Klonopin) 2 mg PO BID PRN Anxiety #0 tabs 05/03/24
levothyroxine 137 mcg tablet 137 mcg PO DAILY @ 0600 #30 tabs 05/03/24
Home Medication Changes
Levothyroxine dose decreased from 175 to 137 mcg daily
Pending Results: No
--- NOTE | 2024-05-03 14:39 | W.DCSUMMARY ---
Discharge Summary
Discharge Data
Date of Admission: 05/02/24
Date of Discharge: 05/03/24
-
Pending Results: No
Hospital Course
Discharging Physician : Dr. Leonor Cunningham
Disposition : Home
Primary care physician : Dr. Fareed Mendez
Principal Discharge diagnosis : Hyperthyroidism
Hospital Course :
Ms Zeny Jcakson is a 59 year old woman with history seizure disorder thought to be secondary to traumatic brain injury, hypothyroidism (had Graves' disease status post total thyroidectomy) who presents to the ER with disorientation and imbalance.
Head CT without acute event. Last seizure was 2 weeks ago, no report of seizure since. EEG without seizure activity. TSH undetectable. Patient admitted for likely encephalopathy 2/2 hyperthyroidism. Her Synthroid dose was decreased. Plan
discussed with her outpatient implementation advisor, Dr. Bermudez. She is decreased to dosing of 137mcg daily and will have close follow up.
Patient's mentation normalized prior to discharge, worked with PT. Plan discussed with patient and her .
Time spent on discharge was 32 minutes.
Important imaging findings :
Procedure findings :
Discharge Plan
-
Patient Disposition: Home (Routine Discharge)
Discharge Diagnosis/Procedures: hyperthyroidism
Diet: Regular
Activity: As tolerated
Driving Restrictions: As prior to admission
Bathing Restrictions: None
Referrals:
Radha Bermudez MD [Consulting Staff] - in two to three weeks
Fareed Mendez DO [Family Provider] - in less than 1 week
Additional Discharge Medication Instructions: Decrease your Levothyroxine from 175mcg to 137mcg daily
Prescriptions:
New
levothyroxine 137 mcg Tablet
137 mcg PO DAILY @ 0600 Qty: 30 0RF
Continued
lamotrigine [Lamictal] 200 mg tablet
200 mg PO BID Qty: 60 0RF
zolpidem 10 mg Tablet
10 mg PO HSPRN PRN (Reason: sleep)
duloxetine 60 mg Capsule,Delayed Release(Dr/Ec)
60 mg PO DAILY
Changed
clonazepam [Klonopin] 2 mg Tablet
2 mg PO BID PRN (Reason: Anxiety) Qty: 0 0RF
Patient Comments:
pt stopped her klonopin 3 weeks ago was only taking 2-3 times a week not bid
Discontinued
levothyroxine 175 mcg Tablet
175 mcg PO DAILY
Discharge Orders:
Discharge Patient (As Directed); Ordered 05/03/24
Ordered By: Leonor Cunningham
Discharge Date and Time
Print Language: SETSWANA
[2024-05-03 15:00] VITALS: BP 135/72
--- NOTE | 2024-05-03 15:26 | PTCARENOTE ---
Patient was discharged. Discharge instructions reviewed and all questions answered. Patient escorted to main lobby where picked her up. Patient left with all known belongings.
[2024-05-04 10:53] LABS: Hepatitis B Surface Antigen Negative (Negative)
[2024-05-04 11:10] LABS: Hepatitis C Antibody Negative (Negative)
[2024-05-04 12:17] LABS: HIV Combo Negative (Negative)
== END 2024-05-03 15:35 | disposition home or self-care (01) ==
LOC: IMU 22:54
PROVIDERS: Clinical Nurse Specialist Family Health; Emergency Medicine; ADMITTING PHYSICIAN Internal Medicine; ATTENDING PHYSICIAN Student in an Organized Health Care Education/Training Program; EMERGENCY PHYSICIAN Student in an Organized Health Care Education/Training Program; FAMILY PHYSICIAN Family Medicine
DX: E05.00 Thyrotoxicosis with diffuse goiter without thyrotoxic crisis or storm (principal); R42 Dizziness and giddiness; G93.40 Encephalopathy, unspecified; R41.0 Disorientation, unspecified; R47.81 Slurred speech; R63.4 Abnormal weight loss; G47.00 Insomnia, unspecified; R26.89 Other abnormalities of gait and mobility; F41.9 Anxiety disorder, unspecified; R53.83 Other fatigue; G40.909 Epilepsy, unspecified, not intractable, without status epilepticus; F12.90 Cannabis use, unspecified, uncomplicated; R94.31 Abnormal electrocardiogram [ECG] [EKG]; F32.A Depression, unspecified; R13.10 Dysphagia, unspecified; G89.29 Other chronic pain; G43.909 Migraine, unspecified, not intractable, without status migrainosus; K59.00 Constipation, unspecified; Z87.442 Personal history of urinary calculi; Z82.49 Family history of ischemic heart disease and other diseases of the circulatory system; Z83.49 Family history of other endocrine, nutritional and metabolic diseases; Z87.820 Personal history of traumatic brain injury; Z79.890 Hormone replacement therapy; Z83.79 Family history of other diseases of the digestive system; Z11.52 Encounter for screening for COVID-19
CPT/HCPCS: 70450; 80053; 80175; 80306; 81003; 81015; 84439; 84443; 84484; 84703; 85025; 86803; 87340; 87389; 87811; 93005; 97162; 99284; G0378

== ENCOUNTER 2024-05-23 21:21 | Observation (INO) | payer OTHER, SELFPAY ==
[2024-05-23 16:47] VITALS: BP 125/79
[2024-05-23 17:09] LABS: % Eosinophils 3.3 % (0-6); % Immature Granulocytes 0.3 % (0-0.5); % Lymphocytes 35.3 % (20.5-51.1); % Monocytes 5.8 % (1.7-9.3); % Neutrophils 54.3 % (42.2-75.2); Absolute Eosinophils 0.1 10^3/uL (0-0.7); Absolute Lymphocytes 1.4 10^3/uL (1.2-3.4); Absolute Monocytes 0.2 10^3/uL (0.1-0.6); Absolute Neutrophils 2.2 10^3/uL (1.4-6.5); Hematocrit 37.5 % (37.0-47.0); Hemoglobin 13.3 g/dL (12.0-16.0); Mean Corp Hgb Conc. 35.5 g/dL (33.0-37.0); Mean Corpuscular Hgb 28.7 pg (27.0-31.0); Mean Corpuscular Volume 80.8 fL (81.0-99.0); Mean Platelet Volume 9.3 fL (7.4-10.4); Nucleated Red Blood Cells % 0 %; Platelet Count 304 10^3/uL (130-400); Red Blood Cell Count 4.64 10^6/uL (4.20-5.40); Red Cell Dist. Width 11.7 % (11.5-14.5)
[2024-05-23 17:22] LABS: ALT (SGPT) 14 U/L (0-35); AST (SGOT) 17 U/L (14-36); Alkaline Phosphatase 66 U/L (38-126); Blood Urea Nitrogen 7 mg/dl (7-17); Calcium 10.1 mg/dl (8.4-10.2); Carbon Dioxide 22 mmol/L (22-30); Chloride 101 mmol/L (98-107); Glucose 82 mg/dl (70-99); Potassium 4.3 mmol/L (3.5-5.1); Sodium 137 mmol/L (135-145); Total Bilirubin 0.6 mg/dl (0.2-1.3); Total Protein 7.2 g/dl (6.3-8.2); eGFR > 60.00
[2024-05-23 17:33] LABS: Troponin I < 0.012 ng/ml
[2024-05-23 17:52] LABS: TSH Reflex To Free T4 < 0.02 uIU/ml (0.47-4.68)
--- NOTE | 2024-05-23 18:14 | ED.GENMED ---
History of Present Illness
General
Chief Complaint: Dizziness
Source: patient
Exam Limitations: none
Time Seen by Provider: 05/23/24 18:01
History of Present Illness
History of Present Illness:
This is a 39 year old female that comes in with c/o dizziness. States that she was here about 2 weeks ago with dizziness. States that she was admitted and they thought it was due to her Thyroid. States that she went home and she is still dizzy.
states that she feels like she is a tea cup ride and that the world is spinning. States that her states that she is walking like she is drunk. States that she gets hot and then cold. States that she has been nauseated. Denies any fever,
chest pain, SOB, abd pain, vomiting, diarrhea, headache, urinary burning.
Past History
Past History
ED Past Medical History: Seizures, Hyperthyroidism, Hypothyroidism, Psychiatric (Anxiety, depression) and Other (migraines, Back pain, Renal calculus)
ED Past Surgical History: Orthopedic (Low back surgery) and Other (Thyroidectomy)
Social History
Tobacco: Non-smoker
Alcohol: None
Personal:
Living: with family
Employment: Employed
Family History
Family History: Other (Family history of diverticulosis); Negative Diabetes
Review of Systems
Review of Systems
All Other Systems: ROS reviewed and negative except as documented in HPI and ROS
Constitutional: Reports other (sweats and then feels cold); Denies fever or chills
EENT: Reports no symptoms
Respiratory: Reports no symptoms; Denies cough or trouble breathing
Cardiac: Reports no symptoms; Denies chest pain
ABD/GI: Reports nausea; Denies abdominal pain, vomiting or diarrhea
: Reports no symptoms; Denies dysuria, frequency or urgency
Musculoskeletal: Reports no symptoms
Skin: Reports no symptoms
Neurological: Reports dizzy; Denies headache
Psychiatric: Reports no symptoms
Phy Exam
General Physical Exam
General Presentation: no apparent distress
General age: appears stated age
General Skin: warm and dry
General Habitus: normal
General Mental: alert
General Hydration: appears well hydrated
ENT Exam
ENT Exam: TM's normal, pharynx normal and neck supple
Eye Exam
Eye Exam: PERRL and EOMI
Cardiovascular Exam
Cardiovascular Exam: regular rate/rhythm, no edema, no murmur and normal peripheral pulses
Pulmonary Exam
Pulmonary Exam: lungs clear, no respiratory distress, no rales, chest non tender, no crackles, no rhonchi, no wheezing and no cough
Gastrointestinal Exam
Gastrointestinal Exam: normal bowel sounds, non tender, soft, no organomegaly, no pulsatile mass and non distended
NIH Stroke Score
Level of Consciousness: 0 - Alert
LOC questions: 0-Answers both correctly
LOC Commands: 0-Performs both correctly
Best Gaze: 0-Normal
Visual Joseph: 1=Partial hemianopia (right sided)
Facial palsy: 0=Normal, symmetrical
Motor - Right Arm: 0=No drift 10 seconds
Motor - Left Arm: 0=No drift 10 seconds
Motor - Right Le-No drift 5 seconds
Motor - Left Le-No drift 5 seconds
Limb Ataxia: 0-Absent
Sensation: 0-Normal
Best Language: 0-No aphasia
Dysarthria: 0-Normal
Extinction and Inattention: 0-No abnormality
Total Score:: 1
Musculoskeletal Exam
Musculoskeletal Exam: full ROM, no edema and other (Hand grasp and push pulls equal)
Skin Exam
Skin Exam: normal color, warm/dry, no rash and no petechia
Psychiatric Exam
Psychiatric Exam: normal mood/affect
Course
Orders/Labs/Results
Orders:
Orders
05/23/24 Breakfast
Regular
At Your Request: Full Participation
Does patient need a safe tray?: No
05/23/24 16:46
Electrocardiogram (*1) Stat
Reason for Study: Vertigo / Dizzy
05/23/24 16:49
CT Head W/o Iv Contrast Urgent
Comment:
Reason For Exam: dizziness
05/23/24 16:59
Complete Blood Count/With Diff Urgent
Comprehensive Metabolic Panel Urgent
Free T4 Urgent
TSH Reflex To Free T4 Urgent
Troponin I Urgent
05/23/24 19:50
Fentanyl, Urine Urgent
Urinalysis Reflex To Culture Urgent
Date Specimen was Collected: 05/23/24
Time Specimen was Collected: 19:48
Urine Drug Abuse Screen Urgent
Date Specimen was Collected: 05/23/24
Time Specimen was Collected: 19:48
05/23/24 20:47
Admit/Transfer Patient As Directed
Co-Sign Provider:
Level of Care: Observation services
Assign to:: Telemetry
Physician / Group: Ashvin
Diagnosis: Dizziness
Reason for Telemetry: CVA/TIA
Date to Stop Telemetry: 05/26/24
Time to Stop Telemetry: 11:00
05/23/24 20:48
PRN Pain Medication Management As Directed
May give lesser potent ordered pain med per pt: Yes
preference::
Protocol:: Medication orders for pain may be administered in a
manner that supports deferring to patient preference
when the pt is:
- Requesting an ordered lesser potent pain medication.
Least to most potent pain medications are defined
as: acetaminophen < NSAID < tramadol < opioids
(morphine, oxycodone, hydromorphone).
- Requesting a lesser dose of the same medication IF
ORDERED.
- Requesting a less intrusive route of administration
if both routes are prescribed by the provider (PO <
IV).
05/23/24 20:49
Code Status As Directed
Resuscitation Status: Full Code
05/23/24 22:00
Flush (0.9% Sodium Chloride) [Flush (Nss)] See Dose Instructions IV PER PROTOCOL
05/23/24 22:31
Acetaminophen [Tylenol] 650 mg PO Q4HPRN PRN
Diazepam [Valium] 2 mg PO TIDPRN PRN
05/23/24 22:31
Activity As Directed
Activity Level: Ambulate
With Assistance
EKG with chest pain [ECG as needed] As Directed
ECG as needed for:: Chest Pain
I/O [Intake/ Output] As Directed
Frequency: Per unit guidelines
Neurological Checks As Directed
Frequency: q4h
Orthostatic Vital Signs As Directed
Orthostatic VS Frequency: BID
Pneumatic Compression Sleeves As Directed
Type: Knee high
Vital Signs As Directed
Frequency: Per unit guidelines
Oxygen Therapy [O2 Therapy] [RESP] Routine
Titrate/Wean O2 to maintain O2 sat greater than (%): 94
Ot Eval And Treat Routine
PT Consult [Pt Eval And Treat] Routine
Treatment: Vestibular eval
Activity Level: Ambulate
With Assistance
DX Deep Vein Thrombosis Video Routine
05/23/24 23:08
Lamictal [Lamotrigine (Lamictal)] [S] Routine
05/24/24 06:00
Basic Metabolic Panel IN AM
Cardiovascular Evaluation IN AM
Complete Blood Count/No Diff IN AM
MR Brain W/o & With Contrast IN AM
Comment:
Reason For Exam: Dizziness
Recent pill cam endoscopy?: No
Levothyroxine [Synthroid] 137 mcg PO DAILY @ 0600
05/24/24 08:00
Aspirin Chewable [Low Strength Aspirin] 81 mg PO DAILY
Duloxetine Delayed Release [Cymbalta Delayed Release] 60 mg PO DAILY
Lamotrigine [Lamictal] 200 mg PO BID
05/26/24 11:00
DC Protocol for Telemetry ONCE
Abnormal Lab Results
05/23/24 05/23/24
16:59 19:50
WBC 4.0 L 10^3/uL
(4.8-10.8)
MCV 80.8 L fL
(81.0-99.0)
TSH (Reflex) < 0.02 L uIU/ml
(0.47-4.68)
Urine Ketones Trace A
(Negative)
U Benzodiazepines Scrn Positive H
(Negative)
U Marijuana (THC) Screen Positive H
(Negative)
05/23/24 16:59
05/23/24 16:59
Leukopenia, TSH extremely low, Free T4 1.99, . Troponin <0.012, Urine negative for infection. Urine drug positive for Benzo's and Marijuana
Vital Signs
Initial and Last Documented VS:
Initial Vital Signs
Temp Pulse Resp BP Pulse Ox
98.2 F 93 18 125/79 99
05/23/24 16:47 05/23/24 16:47 05/23/24 16:47 05/23/24 16:47 05/23/24 16:47
Last Documented Vital Signs
Temp Pulse Resp BP Pulse Ox
97.8 F 84 18 136/74 100
05/23/24 22:36 05/23/24 22:36 05/23/24 22:36 05/23/24 22:36 05/23/24 22:36
MDM/Problems Addressed
Differential Diagnosis Includes:
CVA, Brain mass,
MDM/Problems Addressed:
this is a 39 year old female that comes in with c/o with c/o dizziness. States that she was here 2 weeks ago and they thought it was her Thyroid. States that she feels like the world is spinning and that her states that she is walking drunk.
will check labs, CT head, urine. Will consider Admission as patient may need MRI.
back to see patient. Explained that the CT of her head is negative. Patient states that she has fallen 3-4 times at home today. Will admit. Hospitalist notified.
Chronic conditions affecting care:
NA
Acute Exacerbation and/or Progression of Chronic Illness:
NA
*Radiology
Radiology exam reviewed: radiology read reviewed (CT head-No CT evidence for acute intracranial disease. )
*Pulse Oximetry
Patient hypoxic: no
*EKG
Interpreted by ED Provider?: Yes
Heart Rate: 78
Rhythm: sinus
[place]: normal axis
Interval: normal interval
QRS Pattern: normal QRS
Ischemia: no ischemia
*Student Affairs Dean Interpretation
Rate: Student Affairs Dean- N/A
*Critical Care Note
Total Time (30-74mins, 75-104mins- exclusive of procedures): Not Applicable
ED Attending Note
-
Portions of this chart may have been created with voice recognition software.� Occasional wrong word or��sound alike� substitutions may have occurred due to the inherent limitations of voice recognition software.
Discharge Plan
Departure
Patient Disposition: Admit
Date of Disposition: 05/23/24
Time of Disposition: 19:42
Admit to: Med/Surg
Presentation/result/management discussed w/ accepting MD/DO: Hospitalist
Patient with high blood pressure during this ER visit?: No
Condition: Good
Covid-19: Not Applicable
Discharge Problem:
Dizziness, Frequent falls
Interventions
Interventions:
*Risk Screen - Suicide Last Done: 05/23/24 23:21
*General Assessment Last Done: 05/23/24 16:47
*Neglect/Abuse Screening Last Done: 05/23/24 18:38
*ED COVID-19 Vaccine History Last Done: 05/23/24 18:37
*Nursing Disposition Last Done: 05/23/24 22:23
ED- Neurological Assessment Last Done: 05/23/24 18:39
ED Swallowing Screen Last Done: 05/23/24 18:38
Discharge Date and Time
Discharge Date/Time: 05/23/24 22:23
[2024-05-23 18:29] LABS: Free T4 1.99 ng/dl (0.78-2.19)
[2024-05-23 18:36] VITALS: BMI 29.4
[2024-05-23 19:08] VITALS: BP 109/78
[2024-05-23 19:59] LABS: Urine Albumin Negative (Neg - Trace); Urine Bilirubin Negative (Negative); Urine Character Clear (Clear); Urine Color Yellow; Urine Glucose Negative (Negative); Urine Ketone Trace (Negative); Urine Leukocyte Negative (Negative); Urine Nitrite Negative (Negative); Urine Occult Blood Negative (Negative); Urine Urobilinogen Negative (Neg - 1+)
[2024-05-23 20:24] LABS: Amphetamines Negative (Negative); Barbiturates Negative (Negative); Benzodiazepines Positive (Negative); Buprenorphine Negative (Negative); Cocaine Negative (Negative); Marijuana Positive (Negative); Methadone Negative (Negative); Methamphetamines Negative (Negative); Opiates Negative (Negative); Phencyclidine Negative (Negative); Tricyclic Antidepressants Negative (Negative)
[2024-05-23 20:44] LABS: Fentanyl, Urine Negative (Negative)
--- NOTE | 2024-05-23 20:53 | HPS.HSE ---
Family Physician
-
Family Physician: Fareed Mendez
Chief Complaint
-
Dizziness
History of Present Illness
Patient is a 39y F with PMH significant for hypothyroidism, Graves disease and anxiety / depression who presents to ED complaining of dizziness, ataxia and frequent falls. Patient was hospitalized here from 05/02 - 05/03 for similar (though much
less severe) symptoms. Her T4 was found to be elevated and symptoms felt to be due to hyperthyroidism. Her dosing was adjusted and patient was discharged to home. Patient states that her symptoms have only increased since that time. She states
that she feels unsteady on her feet. She feels as if her eyes are 'crossed' and has blurry vision, but not double vision. She denies any headache, numbness, tingling, weakness, etc.
Patient notes that she has fallen about 6-7 times in the past month. She denies any head injury or any significant trauma / injury related to the falls.
Her states that she has been more forgetful of late.
Since her last admission, her duloxetine dose has been increased from 60mg daily to 90mg daily. She was given an Rx for meclizine, but notes that this has not improved her symptoms at all.
Patient has listed Rx for carisoprodol and clonazepam. She states that she has not taken either of these recently - though her UDS is positive for benzos and THC.
Medical History
Past Medical History
Past Medical History: Reports Other
Additional Past Medical History:
Anxiety / Depression
Graves' Disease
Hypothyroidism
Chronic Back Pain
Migraine Headaches
Seizure Disorder
Past Surgical History: Reports Other
Additional Past Surgical History:
Thyroidectomy (27yo)
Low Back Surgery (September 2023)
Social History
Tobacco: Non-smoker
Alcohol: None
Drug: None
Personal:
Living: With Family
Family History
Family History: Other (Mother / Sisters: Thyroid Disease Father: HTN, Vertigo)
Allergies / Home Medications
Allergies reflects when Allergies were last updated in [facility].
Home Medications with original date entered in [facility]
Allergy/Medication List:
Allergies
Allergy/AdvReac Type Severity Reaction Status Date / Time
No Known Allergies Allergy Verified 05/23/24 16:46
Home Medications
lamotrigine 200 mg tablet (Lamictal) 200 mg PO BID #60 tabs 11/22/22
duloxetine 60 mg capsule,delayed release 60 mg PO DAILY Mental Health/Anxiety 05/02/24
zolpidem 10 mg tablet 10 mg PO HSPRN PRN sleep 05/02/24
carisoprodol 350 mg tablet 350 mg PO TIDPRN PRN muscle spasms 05/23/24
clonazepam 2 mg tablet (Klonopin) 2 mg PO BIDPRN PRN Anxiety 05/23/24
duloxetine 30 mg capsule,delayed release 30 mg PO DAILY 05/23/24
levothyroxine 137 mcg tablet 137 mcg PO DAILY 05/23/24
ondansetron HCl 4 mg tablet 4 mg PO Q6HPRN PRN nausea 05/23/24
Review of Systems
-
History Source: Patient
A 12 point ROS was completed and negative except as noted: Yes
Constitutional: Reports Fatigue; Denies Fever or Chills
EENT: Denies Sore Throat
Respiratory: Denies Cough or Trouble Breathing
Cardiac: Denies Chest Pain or Palpitations
Abdomen/GI: Denies Abdominal Pain, Nausea, Vomiting or Diarrhea
: Denies Dysuria, Frequency or Flank Pain
Musculoskeletal: Denies Joint Pain, Joint Swelling or Edema
Neurological: Reports Dizzy; Denies Headache, Weakness or Numbness
Psych: Denies Depression or Anxiety
Physical Exam
Vital Signs
Vital Signs
Temp Pulse Resp BP Pulse Ox
98.2 F 76 16 109/78 99
05/23/24 16:47 05/23/24 19:08 05/23/24 19:08 05/23/24 19:08 05/23/24 19:08
Physical Exam
General: Other (39y F in no acute distress.)
HEENT: Moist mucous membranes and Other (No evident nystagmus. Pupils are dilated but reactive to light.)
Respiratory: Clear; No Wheezes, Rales or Rhonchi
Cardiac: S1/S2 and Regular Rhythm; No Murmur
GI: Soft, Non Tender, Non Distended and Normal Bowel Sounds
Musculoskeletal: No Clubbing, No Cyanosis and No Edema
Neuro: AO x 3, Nonfocal/grossly intact and Other (Normal [id number])
Psych: No Agitated or Anxious
Laboratory Results
-
05/23/24 16:59
05/23/24 16:59
Laboratory Results
Total Bilirubin 0.6 mg/dl (0.2-1.3) 05/23/24 16:59
AST 17 U/L (14-36) 05/23/24 16:59
ALT 14 U/L (0-35) 05/23/24 16:59
Alkaline Phosphatase 66 U/L (38-126) 05/23/24 16:59
Troponin I < 0.012 ng/ml 05/23/24 16:59
Impression/Plan
-
A/P: Patient is a 39y F with PMH significant for hypothyroidism, seizure disorder and anxiety who presents to ED complaining of multiple falls in the past month and dizziness.
Dizziness
Ataxia / Frequent Falls
- Observe overnight for further evaluation and treatment.
- TFTs are improved from prior; however, symptoms are even worse now than during last hospitalization.
- PT / vestibular evaluation.
- Check MRI brain in the AM.
- Monitor for any new/ worsening symptoms.
- Trial of Valium for symptom control - no improvement with meclizine as an outpatient.
- Consider Neurology evaluation.
Hypothyroidism
Graves' Disease s/p Thyroidectomy
- Stable. Free T4 improved from prior on lower dose of T4 supplementation.
- TSH remains undetectable.
Anxiety / Depression
- Stable. Continue duloxetine at original / lower dose for now.
History of Seizure Disorder
- No recent seizures per patent - though describes some 'absence' episodes before previous hospitalization.
- Continue current medications.
- Check lamictal level.
DVT Prophylaxis: SCDs
Code Status: Full
[2024-05-23 21:10] VITALS: BP 100/73
[2024-05-23 22:36] VITALS: BP 104/65; BP 124/75; BP 136/74; PULSE 104; PULSE 84; BMI 27.5
[2024-05-23] MEDS: VALIUM 2 MG PO (22:47)
[2024-05-24] VITALS (8 sets, daily range): BP systolic 98–134; BP diastolic 61–83; PULSE 83–114; O2SAT 97
[2024-05-24] MEDS: SYNTHROID 137 MCG PO (06:08)
[2024-05-24] MEDS: CYMBALTA DELAYED RELEASE 60 MG PO (07:47)
[2024-05-24] MEDS: LOW STRENGTH ASPIRIN 81 MG PO (07:47)
[2024-05-24] MEDS: LAMICTAL 200 MG PO ×2 (07:47→20:53)
[2024-05-24 08:20] LABS: Hematocrit 36.8 % (37.0-47.0); Hemoglobin 13.3 g/dL (12.0-16.0); Mean Corp Hgb Conc. 36.1 g/dL (33.0-37.0); Mean Corpuscular Volume 80.2 fL (81.0-99.0); Mean Platelet Volume 9.8 fL (7.4-10.4); Platelet Count 233 10^3/uL (130-400); Red Blood Cell Count 4.59 10^6/uL (4.20-5.40); Red Cell Dist. Width 11.8 % (11.5-14.5); White Blood Cell Count 4.3 10^3/uL (4.8-10.8)
[2024-05-24 09:02] LABS: Blood Urea Nitrogen 7 mg/dl (7-17); Calcium 9.7 mg/dl (8.4-10.2); Carbon Dioxide 26 mmol/L (22-30); Chloride 100 mmol/L (98-107); Estimated Creatinine Clearance 96 ml/min; Glucose 73 mg/dl (70-99); HDL Cholesterol 60 mg/dl; LDL Cholesterol, Calculated 161 mg/dl; Potassium 4.2 mmol/L (3.5-5.1); Sodium 138 mmol/L (135-145); Total Cholesterol 247 mg/dl (50-199); Triglyceride 131 mg/dl (10-149); Very Low Density Lipoprotein 26 mg/dl (0-30); eGFR > 60.00
[2024-05-24] MEDS: NSS 1000 IV ×2 (09:35→20:52)
[2024-05-24 11:42] LABS: Iron 49 ug/dl (37-170)
[2024-05-24 11:52] LABS: Percent Saturation 19 % (20-50); Total Iron Binding Capacity 246 ug/dl (265-497)
--- NOTE | 2024-05-24 11:56 | W.PN.HOSP.TC ---
Today's Communication/Plan
-
monitor vitals
see plan
MRI
check iron panel, B12, folate
PT/OT
Fluids
Assessment / Plan
Assessment / Plan
General: Other (39y F in no acute distress.)
HEENT: Moist mucous membranes
Respiratory: Clear; No Wheezes, Rales or Rhonchi
Cardiac: S1/S2 and Regular Rhythm; No Murmur
GI: Soft, Non Tender, Non Distended and Normal Bowel Sounds
Musculoskeletal: No Clubbing, No Cyanosis and No Edema
Neuro: AO x 3, Nonfocal/grossly intact
Psych: No Agitated or Anxious
Dizziness
Ataxia / Frequent Falls
Also complaining of intermittent vertigo
- TFTs are improved from prior; however, symptoms are even worse now than during last hospitalization.
- PT / vestibular evaluation.
- Check MRI brain
- Consider Neurology evaluation if symptoms do not improve
Orthostatic positive, start fluids
UDS positive for benzos which she takes at home and marijuana
Check iron panel, B12, folate
Hypothyroidism
Graves' Disease s/p Thyroidectomy
- Stable. Free T4 improved from prior on lower dose of T4 supplementation.
- TSH remains undetectable.
Anxiety / Depression
- Stable. Continue duloxetine at original / lower dose for now.
History of Seizure Disorder
- No recent seizures per patent - though describes some 'absence' episodes before previous hospitalization.
- Continue current medications.
- Check lamictal level.
DVT Prophylaxis: SCDs
Code Status: Full
Anticipated Discharge: Within 24 hours
Subjective/Interval History
-
Date of Service: May 24, 2024
has some blurry vision with vertigo
Objective Data
-
Labs:
Laboratory Results
05/24/24
07:32
WBC 4.3 L
Hgb 13.3
Hct 36.8 L
Plt Count 233 D
Sodium 138
Potassium 4.2
Chloride 100
Carbon Dioxide 26
BUN 7
Creatinine 0.8
Glucose 73
Calcium 9.7
Vital Signs:
Vital Signs
Temp Pulse Resp BP Pulse Ox
97.9 F 80 16 98/64 99
05/24/24 07:04 05/24/24 07:04 05/24/24 07:04 05/24/24 07:04 05/24/24 07:04
[2024-05-24] MEDS: KLONOPIN 2 MG PO (12:17)
[2024-05-24 12:49] LABS: Folate 4.3 ng/ml (2.76-20); Vitamin B12 437 pg/ml (239-931)
--- NOTE | 2024-05-24 14:50 | CON.NEURO ---
Consultation
Order
Date of Consultation: 05/24/24
Requesting Provider: Arnulfo Williamson MD
Reason for Consult: abnormal brain MRI
CC: falls
HPI: This is a 39-year-old RH woman who presented to [facility] on May 23, 2024 with falls and imbalance.
According to the patient she has had multiple falls over the last several weeks. No reports of loss of consciousness or aur. According to patient's spouse he witnessed the patient falling backwards onto the bed and never to the floor. Ms. Jackson
reports a unwitnessed fall downstairs.
The patient reportedly has intermittent dysarthria lasting for days as well as poor memory. Zeny does not believe her dysarthria is related to her medications she takes.
She has a history of seizures, which began in 2018, and is currently taking Lamictal for seizure management.
ER VS:125/79, afebrile.
EKG: NSR, QTc Int : 426 ms
PDMP:Clonazepam 2 Mg 60 tabs filled in on 05/14/2024, Carisoprodol 350 Mg�30 tabs filled in on 05/21/2024, 05/09/2024, 04/07/2024
Labs: WBCs�4.0, MCV�80, normal sodium, creatinine, calcium, LDL 161, vit B12 437, normal free T4, unremarkable urinalysis, U tox positive for benzodiazepines, THC.
Brain MRI wo lynn-small chronic lacunar infarct in the right cerebellum.
Labs: vit [id number]
PMH: TBI(2004), seizure DO, hypothyroidism, DLP, LYNN, MDD, insomnia, nephrolithiasis, chronic back pain
PSH:thyroidectomy, lumbar discectomy?
SH:; has 2 children; former MA at [employer]; nonsmoker; no history of excessive ETOH use; not currently employed
FH:mother-hypothyroidism, migraines, father -hypertension, vertigo
All:NKDA
ROS:Constitutional: Negative. Negative for chills, fever and unexpected weight change.
HENT: Negative for ear pain, hearing loss, tinnitus and trouble swallowing.
Eyes: Negative. Negative for photophobia, pain and visual disturbance.
Respiratory: Negative for cough, choking and shortness of breath.
Cardiovascular: Negative for chest pain, palpitations and leg swelling.
Gastrointestinal: Negative for abdominal pain and vomiting.
Endocrine: Negative. Negative for cold intolerance.
Genitourinary: Negative for dysuria, flank pain and urgency.
Musculoskeletal: Negative for back pain, gait problem, neck pain and neck stiffness.
Skin: Negative for rash.
Allergic/Immunologic: Negative. Negative for immunocompromised state.
Neurological: positive for falls, imbalance.
Psychiatric/Behavioral: Positive for anxiety.
General: Well developed. In no acute distress.
Cardio: Regular rate and rhythm without murmur. Extremities are without cyanosis or edema.
Neuro:
Mental Status: Alert, oriented to person, place, and date. Normal attention and recall. Good fund of knowledge. Follows complex requests across the midline. Comprehension, naming, and repetition intact. Immediate and delayed recall 3/3.
Cranial Nerves: . Pupils are equally round and reactive to light. EOMs full. Visual saleh full to confrontation. No ptosis. No nystagmus. V1-V3 intact to light touch and pinprick bilaterally, symmetric. Face symmetric. Normal hearing AU.
The palate elevated well. SCMs and traps 5/5. Tongue midline. No dysarthria.
Motor: Normal bulk and tone. No pronator or arm drift. Strength 5/5 throughout. No clonus.
Reflexes: 3+ throughout the upper extremities and knees. 2/2 in AJs. Plantar responses flexor bilaterally. Neg Mayfield's BL.
Sensory: Normal vibration and JPS.
Coordination: No dysmetria or tremor.
Gait: deferred
Pes cavus BL
No ecchymoses
Assessment and Plan:
I. Recurrent falls.
II. Hyperreflexia.
III. Cognitive complaints.
-Fall precautions
-PT
-C/T spine MRI wo lynn
-Routine EEG
I personally reviewed all radiology and labs along with past medical records pertinent to current medical problems. Total time spent in patient care is 60 minutes.
Thank you for allowing us to participate in the care of this patient. We will continue to follow. Please do not hesitate to contact us with any questions or concerns.
Subjective/Objective
Subjective Data
Date of Service: May 24, 2024
Objective Data
Vital Signs
Temp Pulse Resp BP Pulse Ox
36.6 C 93 18 112/70 100
05/24/24 12:06 05/24/24 12:06 05/24/24 12:06 05/24/24 12:06 05/24/24 12:06
Lab Results
05/24/24 07:32
05/24/24 07:32
Sodium 138 mmol/L (135-145) 05/24/24 07:32
Potassium 4.2 mmol/L (3.5-5.1) 05/24/24 07:32
BUN 7 mg/dl (7-17) 05/24/24 07:32
Glucose 73 mg/dl (70-99) 05/24/24 07:32
Calcium 9.7 mg/dl (8.4-10.2) 05/24/24 07:32
LDL Cholesterol, Calc 161 mg/dl 05/24/24 07:32
Vitamin B12 437 pg/ml (239-931) 05/24/24 07:32
Ur Buprenorphine Negative (Negative) 05/23/24 19:50
Patient Allergies
No Known Allergies Allergy (Verified 05/23/24 16:46)
Medications
-
Active Medications
Generic Name Dose Route Start Last Admin
Trade Name Freq PRN Reason Stop Dose Admin
Acetaminophen 650 mg 05/23/24 22:31
Acetaminophen 325 Mg Tablet PO 06/20/24 22:30
Q4HPRN PRN
Mild Pain / Temp > 101
Aspirin 81 mg 05/24/24 08:00 05/24/24 07:47
Aspirin 81 Mg Chewable Tablet PO 06/21/24 07:59 81 mg
DAILY LAYLA Administration
Atorvastatin Calcium 40 mg 05/24/24 18:00
Atorvastatin (Lipitor) 40 Mg Tablet PO 06/21/24 17:59
QPM LAYLA
Clonazepam 2 mg 05/24/24 09:45 05/24/24 12:17
Clonazepam 1 Mg Tablet PO 06/21/24 09:44 2 mg
BIDPRN PRN Administration
Anxiety
Duloxetine HCl 60 mg 05/24/24 08:00 05/24/24 07:47
Duloxetine Delayed Release 60 Mg Capsule PO 06/21/24 07:59 60 mg
DAILY LAYLA Administration
Sodium Chloride 1,000 mls @ 100 mls/hr 05/24/24 09:00 05/24/24 09:35
Nss IV 1,000 mls
.Q10H LAYLA Administration
Lamotrigine 200 mg 05/24/24 08:00 05/24/24 07:47
Lamotrigine 100 Mg Tablet PO 06/21/24 07:59 200 mg
BID LAYLA Administration
Levothyroxine Sodium 137 mcg 05/24/24 06:00 05/24/24 06:08
Levothyroxine 137 Mcg Tablet PO 06/21/24 05:59 137 mcg
DAILY @ 0600 LAYLA Administration
Sodium Chloride 0 flush 05/23/24 22:00
Sodium Chloride 0.9% (Flush) Syringe IV 06/20/24 21:59
PER PROTOCOL LAYLA
Home Medications
�Medication �Instructions �Recorded
lamotrigine 200 mg tablet 200 mg PO BID #60 tabs 11/22/22
(Lamictal)
duloxetine 60 mg capsule,delayed 60 mg PO DAILY Mental 05/02/24
release Health/Anxiety
zolpidem 10 mg tablet 10 mg PO HSPRN PRN sleep 05/02/24
carisoprodol 350 mg tablet 350 mg PO TIDPRN PRN muscle spasms 05/23/24
clonazepam 2 mg tablet (Klonopin) 2 mg PO BIDPRN PRN Anxiety 05/23/24
duloxetine 30 mg capsule,delayed 30 mg PO DAILY 05/23/24
release
levothyroxine 137 mcg tablet 137 mcg PO DAILY 05/23/24
ondansetron HCl 4 mg tablet 4 mg PO Q6HPRN PRN nausea 05/23/24
Vital Signs and Labs
-
Vital Signs and Labs:
Vital Signs
Temp Pulse Resp BP Pulse Ox
36.8 C 82 18 134/70 98
05/24/24 17:01 05/24/24 17:01 05/24/24 17:01 05/24/24 17:01 05/24/24 17:01
Lab Results
05/24/24 07:32
05/24/24 07:32
Sodium 138 mmol/L (135-145) 05/24/24 07:32
Potassium 4.2 mmol/L (3.5-5.1) 05/24/24 07:32
BUN 7 mg/dl (7-17) 05/24/24 07:32
Glucose 73 mg/dl (70-99) 05/24/24 07:32
Calcium 9.7 mg/dl (8.4-10.2) 05/24/24 07:32
LDL Cholesterol, Calc 161 mg/dl 05/24/24 07:32
Vitamin B12 437 pg/ml (239-931) 05/24/24 07:32
Ur Buprenorphine Negative (Negative) 05/23/24 19:50
Medications
-
Medications:
Generic Name Dose Route Start Last Admin
Trade Name Freq PRN Reason Stop Dose Admin
Acetaminophen 650 mg 05/23/24 22:31
Acetaminophen 325 Mg Tablet PO 06/20/24 22:30
Q4HPRN PRN
Mild Pain / Temp > 101
Aspirin 81 mg 05/24/24 08:00 05/24/24 07:47
Aspirin 81 Mg Chewable Tablet PO 06/21/24 07:59 81 mg
DAILY LAYLA Administration
Atorvastatin Calcium 40 mg 05/24/24 18:00 05/24/24 16:59
Atorvastatin (Lipitor) 40 Mg Tablet PO 06/21/24 17:59 40 mg
QPM LAYLA Administration
Clonazepam 2 mg 05/24/24 09:45 05/24/24 12:17
Clonazepam 1 Mg Tablet PO 06/21/24 09:44 2 mg
BIDPRN PRN Administration
Anxiety
Duloxetine HCl 60 mg 05/24/24 08:00 05/24/24 07:47
Duloxetine Delayed Release 60 Mg Capsule PO 06/21/24 07:59 60 mg
DAILY LAYLA Administration
Sodium Chloride 1,000 mls @ 100 mls/hr 05/24/24 09:00 05/24/24 09:35
Nss IV 1,000 mls
.Q10H LAYLA Administration
Lamotrigine 200 mg 05/24/24 08:00 05/24/24 07:47
Lamotrigine 100 Mg Tablet PO 06/21/24 07:59 200 mg
BID LAYLA Administration
Levothyroxine Sodium 137 mcg 05/24/24 06:00 05/24/24 06:08
Levothyroxine 137 Mcg Tablet PO 06/21/24 05:59 137 mcg
DAILY @ 0600 LAYLA Administration
Sodium Chloride 0 flush 05/23/24 22:00
Sodium Chloride 0.9% (Flush) Syringe IV 06/20/24 21:59
PER PROTOCOL LAYLA
Home Medications
-
Home Medications
lamotrigine 200 mg tablet (Lamictal) 200 mg PO BID #60 tabs 11/22/22
duloxetine 60 mg capsule,delayed release 60 mg PO DAILY Mental Health/Anxiety 05/02/24
zolpidem 10 mg tablet 10 mg PO HSPRN PRN sleep 05/02/24
carisoprodol 350 mg tablet 350 mg PO TIDPRN PRN muscle spasms 05/23/24
clonazepam 2 mg tablet (Klonopin) 2 mg PO BIDPRN PRN Anxiety 05/23/24
duloxetine 30 mg capsule,delayed release 30 mg PO DAILY 05/23/24
levothyroxine 137 mcg tablet 137 mcg PO DAILY 05/23/24
ondansetron HCl 4 mg tablet 4 mg PO Q6HPRN PRN nausea 05/23/24
--- NOTE | 2024-05-24 15:10 | CM ---
Addendum entered by Radha Gomez 05/24/24 15:35:
CM met with Zeny and her to discuss the Observation Notice. Zeny signed the form. She was feeling better, but very tired. We talked about supports to help with her children who are ages 2, 3 and 8. She has support of family members;
her mother in law is currently taking care of the children. She also has a family member who is able to help with the children if Zeny is not feeling well.
Plan remains for discharge to home with no needs.
Original Note:
CM met with Zeny at bedside to complete IA. Zeny lives with her and children in a bi-level home with 4 entry steps. Kitchen, bed and bathroom are on the upper level. Zeny stays home with her children; her works outside the
home. Typically Zeny is (I) amb and adls.
PT and OT evals indicate no skilled needs at discharge.
Plan: Probable discharge to home with family and no needs.
PCP: Fareed Mendez
Pharmacy: [facility] in [facility])
[2024-05-24] MEDS: LIPITOR 40 MG PO (16:59)
[2024-05-24] MEDS: AMBIEN 5 MG PO (22:02)
[2024-05-25 03:39] VITALS: BP 106/73; BP 113/73; BP 114/76; PULSE 75; PULSE 81; PULSE 95
[2024-05-25] MEDS: NSS 1000 IV (05:26)
[2024-05-25] MEDS: SYNTHROID 137 MCG PO (05:26)
[2024-05-25 07:30] VITALS: BP 103/78; BP 113/84; BP 122/79; PULSE 104; PULSE 83; PULSE 85
[2024-05-25] MEDS: LAMICTAL 200 MG PO ×2 (08:31→19:59)
[2024-05-25] MEDS: LOW STRENGTH ASPIRIN 81 MG PO (08:31)
[2024-05-25] MEDS: CYMBALTA DELAYED RELEASE 60 MG PO (08:31)
[2024-05-25 08:39] LABS: % Basophils 0.7 % (0-2); % Eosinophils 4.1 % (0-6); % Immature Granulocytes 0.5 % (0-0.5); % Lymphocytes 30.4 % (20.5-51.1); % Monocytes 8.8 % (1.7-9.3); % Neutrophils 55.5 % (42.2-75.2); Absolute Eosinophils 0.2 10^3/uL (0-0.7); Absolute Lymphocytes 1.4 10^3/uL (1.2-3.4); Absolute Monocytes 0.4 10^3/uL (0.1-0.6); Absolute Neutrophils 2.5 10^3/uL (1.4-6.5); Hematocrit 36.9 % (37.0-47.0); Hemoglobin 12.9 g/dL (12.0-16.0); Mean Corpuscular Hgb 28.6 pg (27.0-31.0); Mean Corpuscular Volume 81.8 fL (81.0-99.0); Mean Platelet Volume 9.6 fL (7.4-10.4); Nucleated Red Blood Cells % 0 %; Platelet Count 232 10^3/uL (130-400); Red Blood Cell Count 4.51 10^6/uL (4.20-5.40); Red Cell Dist. Width 11.8 % (11.5-14.5); White Blood Cell Count 4.4 10^3/uL (4.8-10.8)
[2024-05-25 09:13] LABS: Blood Urea Nitrogen 7 mg/dl (7-17); Calcium 9.4 mg/dl (8.4-10.2); Carbon Dioxide 18 mmol/L (22-30); Chloride 102 mmol/L (98-107); Estimated Creatinine Clearance 110 ml/min; Glucose 62 mg/dl (70-99); Potassium 4.4 mmol/L (3.5-5.1); Sodium 140 mmol/L (135-145); eGFR > 60.00
[2024-05-25 09:42] LABS: Glycohemoglobin (HgbA1c) 4.4 % (4.0-5.6)
[2024-05-25 10:16] LABS: Glucose - Point of Care 63 mg/dl (70-99)
[2024-05-25 10:34] LABS: Glucose - Point of Care 78 mg/dl (70-99)
--- NOTE | 2024-05-25 10:35 | GLUCOSE ---
Pt's BS noted to be 62 on AM BMP. 10:15- Accu check- 63 Pt given Apple juice. Recheck BS-78. Pt is not a diabetic. Pt states her appetite is poor an she doesnt always drink or eat. Continued to assess patient status.
--- NOTE | 2024-05-25 11:08 | CM ---
Patient seen at bedside. Patient states that she does not anticipate any needs at this time, she has a ride and family supports. CM will continue to follow for discharge planning needs.
plan; home with no needs anticipated
[2024-05-25 11:10] VITALS: BP 115/83
--- NOTE | 2024-05-25 12:17 | W.PN.HOSP.TC ---
Today's Communication/Plan
-
Monitor vital signs see plan
Continue with aspirin, statin
MRI thoracic spine
Neurology following
PT/OT
monitor sugar level
Assessment / Plan
Assessment / Plan
General: Other (39y F in no acute distress.)
HEENT: Moist mucous membranes
Respiratory: Clear; No Wheezes, Rales or Rhonchi
Cardiac: S1/S2 and Regular Rhythm; No Murmur
GI: Soft, Non Tender, Non Distended and Normal Bowel Sounds
Musculoskeletal: No Clubbing, No Cyanosis and No Edema
Neuro: AO x 3, Nonfocal/grossly intact
Psych: No Agitated or Anxious
Dizziness
Ataxia / Frequent Falls
Also complaining of intermittent vertigo
- TFTs are improved from prior; however, symptoms are even worse now than during last hospitalization.
- PT / vestibular evaluation.
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 Neurology following. daily baby aspirin,statin. MRI thoracic spine per neuro
echo without acute abnormality
- Consider Neurology evaluation if symptoms do not improve
Orthostatic now improved; dc further fluids, feeling better
UDS positive for benzos which she takes at home and marijuana
b12 in 400s
Hypothyroidism
Graves' Disease s/p Thyroidectomy
- Stable. Free T4 improved from prior on lower dose of T4 supplementation.
- TSH remains undetectable.
Hypoglycemia
improved with orange juice
monitor
Anxiety / Depression
- Stable. Continue duloxetine at original / lower dose for now.
History of Seizure Disorder
- No recent seizures per patent
- Continue current medications.
- Check lamictal level.
DVT Prophylaxis: SCDs
Code Status: Full
Anticipated Discharge: Within 24 hours
Subjective/Interval History
-
Date of Service: May 25, 2024
denies headache
Objective Data
-
Labs:
Laboratory Results
05/25/24
08:19
WBC 4.4 L
Hgb 12.9
Hct 36.9 L
Plt Count 232
Sodium 140
Potassium 4.4
Chloride 102
Carbon Dioxide 18 L
BUN 7
Creatinine 0.7
Glucose 62 L
Calcium 9.4
Vital Signs:
Vital Signs
Temp Pulse Resp BP Pulse Ox
97.9 F 100 16 115/83 96
05/25/24 11:10 05/25/24 11:10 05/25/24 11:10 05/25/24 11:10 05/25/24 11:10
I&O
05/24/24 05/25/24 05/26/24
06:59 06:59 06:59
Intake Total 2 / 2
Output Total 160 / 160
Balance -158 / -158
--- NOTE | 2024-05-25 13:35 | W.PN.NEURO.1 ---
Today's Communication / Plan
-
.
Subjective/Objective
Subjective Data
Date of Service: May 25, 2024
Ms. Jackson reports no complaints. She has been normotensive intermittently tachycardic.
Brain MRI showed no acute infarcts.
T-spine MRI is pending.
AM glucose-62.
PMH: TBI(2004), seizure DO, hypothyroidism, DLP, LYNN, MDD, insomnia, nephrolithiasis, chronic back pain
PSH:thyroidectomy, lumbar discectomy?
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
FH:mother-hypothyroidism, migraines, father -hypertension, vertigo
All:NKDA
ROS:Constitutional: Negative. Negative for chills, fever and unexpected weight change.
HENT: Negative for ear pain, hearing loss, tinnitus and trouble swallowing.
Eyes: Negative. Negative for photophobia, pain and visual disturbance.
Respiratory: Negative for cough, choking and shortness of breath.
Cardiovascular: Negative for chest pain, palpitations and leg swelling.
Gastrointestinal: Negative for abdominal pain and vomiting.
Endocrine: Negative. Negative for cold intolerance.
Genitourinary: Negative for dysuria, flank pain and urgency.
Musculoskeletal: Negative for back pain, gait problem, neck pain and neck stiffness.
Skin: Negative for rash.
Allergic/Immunologic: Negative. Negative for immunocompromised state.
Neurological: positive for falls, imbalance.
Psychiatric/Behavioral: Positive for anxiety.
General: Well developed. In no acute distress.
Cardio: Regular rate and rhythm without murmur. Extremities are without cyanosis or edema.
Neuro:
Mental Status: Alert, oriented to person, place, and date. Normal attention and recall. Good fund of knowledge. Follows complex requests across the midline. Comprehension, naming, and repetition intact. Immediate and delayed recall 3/3.
Cranial Nerves: . Pupils are equally round and reactive to light. EOMs full. Visual saleh full to confrontation. No ptosis. No nystagmus. V1-V3 intact to light touch and pinprick bilaterally, symmetric. Face symmetric. Normal hearing AU.
The palate elevated well. SCMs and traps 5/5. Tongue midline. No dysarthria.
Motor: Normal bulk and tone. No pronator or arm drift. Strength 5/5 throughout. No clonus.
Reflexes: 3+ throughout the upper extremities and knees. 2/2 in AJs. Plantar responses flexor bilaterally. Neg Mayfield's BL.
Sensory: Normal vibration and JPS.
Coordination: No dysmetria or tremor.
Gait: deferred
Pes cavus BL
Assessment and Plan:
I. Recurrent falls.
II. Hyperreflexia.
III. Cognitive complaints.
IV. Hypoglycemia
-Fall precautions
-PT
-Insulin level
-T spine MRI wo lynn
I personally reviewed all radiology and labs along with past medical records pertinent to current medical problems. Total time spent in patient care is 35 minutes.
Thank you for allowing us to participate in the care of this patient. We will continue to follow. Please do not hesitate to contact us with any questions or concerns.
Objective Data
Vital Signs
Temp Pulse Resp BP Pulse Ox
36.6 C 100 16 115/83 96
05/25/24 11:10 05/25/24 11:10 05/25/24 11:10 05/25/24 11:10 05/25/24 11:10
Lab Results
05/25/24 08:19
05/25/24 08:19
Sodium 140 mmol/L (135-145) 05/25/24 08:19
Potassium 4.4 mmol/L (3.5-5.1) 05/25/24 08:19
BUN 7 mg/dl (7-17) 05/25/24 08:19
Glucose 62 mg/dl (70-99) L 05/25/24 08:19
Calcium 9.4 mg/dl (8.4-10.2) 05/25/24 08:19
LDL Cholesterol, Calc 161 mg/dl 05/24/24 07:32
Vitamin B12 437 pg/ml (120-591) 05/24/24 07:32
Ur Buprenorphine Negative (Negative) 05/23/24 19:50
Patient Allergies
No Known Allergies Allergy (Verified 05/23/24 16:46)
Vital Signs and Labs
-
Vital Signs and Labs:
Vital Signs
Temp Pulse Resp BP Pulse Ox
36.6 C 100 16 115/83 96
05/25/24 11:10 05/25/24 11:10 05/25/24 11:10 05/25/24 11:10 05/25/24 11:10
Lab Results
05/25/24 08:19
05/25/24 08:19
Sodium 140 mmol/L (135-145) 05/25/24 08:19
Potassium 4.4 mmol/L (3.5-5.1) 05/25/24 08:19
BUN 7 mg/dl (7-17) 05/25/24 08:19
Glucose 62 mg/dl (70-99) L 05/25/24 08:19
Calcium 9.4 mg/dl (8.4-10.2) 05/25/24 08:19
LDL Cholesterol, Calc 161 mg/dl 05/24/24 07:32
Vitamin B12 437 pg/ml (544-651) 05/24/24 07:32
Ur Buprenorphine Negative (Negative) 05/23/24 19:50
Medications
-
Medications:
Generic Name Dose Route Start Last Admin
Trade Name Freq PRN Reason Stop Dose Admin
Acetaminophen 650 mg 05/23/24 22:31
Acetaminophen 325 Mg Tablet PO 06/20/24 22:30
Q4HPRN PRN
Mild Pain / Temp > 101
Aspirin 81 mg 05/24/24 08:00 05/25/24 08:31
Aspirin 81 Mg Chewable Tablet PO 06/21/24 07:59 81 mg
DAILY LAYLA Administration
Atorvastatin Calcium 40 mg 05/24/24 18:00 05/24/24 16:59
Atorvastatin (Lipitor) 40 Mg Tablet PO 06/21/24 17:59 40 mg
QPM LAYLA Administration
Clonazepam 2 mg 05/24/24 09:45 05/24/24 12:17
Clonazepam 1 Mg Tablet PO 06/21/24 09:44 2 mg
BIDPRN PRN Administration
Anxiety
Dextrose 12.5 grams 05/25/24 12:19
Dextrose 50% (0.5 Grams/Ml) 50 Ml Syringe IV 06/22/24 12:18
Q42DAIS PRN
hypoglycemia
Protocol
Duloxetine HCl 60 mg 05/24/24 08:00 05/25/24 08:31
Duloxetine Delayed Release 60 Mg Capsule PO 06/21/24 07:59 60 mg
DAILY LAYLA Administration
Glucagon 1 mg 05/25/24 12:19
Glucagon 1 Mg Vial IM 06/22/24 12:18
PRN PRN
hypoglycemia
Protocol
Sodium Chloride 1,000 mls @ 100 mls/hr 05/24/24 09:00 05/25/24 05:26
Nss IV 1,000 mls
.Q10H LAYLA Administration
Insulin Aspart 0 units 05/25/24 16:30
Insulin Aspart Low Resistance 300 Units/3 Ml Pen.Injctr SC 06/22/24 16:29
AC LAYLA
Protocol
Lamotrigine 200 mg 05/24/24 08:00 05/25/24 08:31
Lamotrigine 100 Mg Tablet PO 06/21/24 07:59 200 mg
BID LAYLA Administration
Levothyroxine Sodium 137 mcg 05/24/24 06:00 05/25/24 05:26
Levothyroxine 137 Mcg Tablet PO 06/21/24 05:59 137 mcg
DAILY @ 0600 LAYLA Administration
Sodium Chloride 0 flush 05/23/24 22:00
Sodium Chloride 0.9% (Flush) Syringe IV 06/20/24 21:59
PER PROTOCOL LAYLA
[2024-05-25 15:25] VITALS: BP 141/94
[2024-05-25 16:44] LABS: Glucose - Point of Care 70 mg/dl (70-99)
[2024-05-25] MEDS: LIPITOR 40 MG PO (17:24)
[2024-05-25] MEDS: KLONOPIN 2 MG PO ×2 (17:27→22:09)
[2024-05-25] MEDS: NSS IV (18:21)
[2024-05-25 19:54] VITALS: BP 116/87; BP 118/78; BP 130/81; PULSE 109; PULSE 76; PULSE 89
[2024-05-25 21:38] LABS: Glucose - Point of Care 84 mg/dl (70-99)
[2024-05-25 22:01] LABS: Lamotrigine (Lamictal) 13.4 ug/mL (3.0-15.0)
[2024-05-25] MEDS: MELATONIN 5 MG PO (22:09)
[2024-05-25 23:29] VITALS: BP 96/67
[2024-05-26 03:21] LABS: Transferrin 199 mg/dL (200-360)
[2024-05-26 03:40] LABS: Glucose - Point of Care 78 mg/dl (70-99)
[2024-05-26 03:50] VITALS: BP 111/71
[2024-05-26] MEDS: SYNTHROID 137 MCG PO (05:23)
[2024-05-26 06:49] LABS: % Eosinophils 5.9 % (0-6); % Lymphocytes 40.2 % (20.5-51.1); % Monocytes 11.3 % (1.7-9.3); % Neutrophils 41.6 % (42.2-75.2); Absolute Eosinophils 0.2 10^3/uL (0-0.7); Absolute Lymphocytes 1.6 10^3/uL (1.2-3.4); Absolute Monocytes 0.5 10^3/uL (0.1-0.6); Absolute Neutrophils 1.7 10^3/uL (1.4-6.5); Hematocrit 36.3 % (37.0-47.0); Hemoglobin 12.9 g/dL (12.0-16.0); Mean Corp Hgb Conc. 35.5 g/dL (33.0-37.0); Mean Corpuscular Hgb 29.5 pg (27.0-31.0); Mean Corpuscular Volume 83.1 fL (81.0-99.0); Nucleated Red Blood Cells % 0 %; Platelet Count 228 10^3/uL (130-400); Red Blood Cell Count 4.37 10^6/uL (4.20-5.40); Red Cell Dist. Width 11.9 % (11.5-14.5); White Blood Cell Count 4.1 10^3/uL (4.8-10.8)
[2024-05-26 07:45] LABS: Blood Urea Nitrogen 6 mg/dl (7-17); Calcium 9.6 mg/dl (8.4-10.2); Carbon Dioxide 21 mmol/L (22-30); Chloride 104 mmol/L (98-107); Estimated Creatinine Clearance 110 ml/min; Glucose 74 mg/dl (70-99); Potassium 4.3 mmol/L (3.5-5.1); Sodium 138 mmol/L (135-145); eGFR > 60.00
[2024-05-26 07:55] VITALS: BP 116/78
[2024-05-26 08:11] LABS: Glucose - Point of Care 92 mg/dl (70-99)
[2024-05-26] MEDS: LOW STRENGTH ASPIRIN 81 MG PO (08:38)
[2024-05-26] MEDS: CYMBALTA DELAYED RELEASE 60 MG PO (08:38)
[2024-05-26] MEDS: LAMICTAL 200 MG PO (08:38)
[2024-05-26 09:01] VITALS: BP 105/74; BP 109/74; BP 118/70; PULSE 100; PULSE 78; PULSE 82
[2024-05-26] MEDS: KLONOPIN 2 MG PO (10:35)
[2024-05-26 11:00] VITALS: BP 135/90
--- NOTE | 2024-05-26 11:34 | W.PN.NEURO.1 ---
Today's Communication / Plan
-
.
Subjective/Objective
Subjective Data
Date of Service: May 26, 2024
Ms. Jackson reports no complaints. She is eager to go home.
24h events: intermittently hypotensive down to 96/67, afebrile.
Labs: Lamictal level-13.4(therapeutic).
PMH: TBI(2004), seizure DO, hypothyroidism, DLP, LYNN, MDD, insomnia, nephrolithiasis, chronic back pain
PSH:thyroidectomy, lumbar discectomy?
SH:; has 2 children; former MA at [employer]; nonsmoker; no history of excessive ETOH use; not currently employed
FH:mother-hypothyroidism, migraines, father -hypertension, vertigo
All:NKDA
ROS:Constitutional: Negative. Negative for chills, fever and unexpected weight change.
HENT: Negative for ear pain, hearing loss, tinnitus and trouble swallowing.
Eyes: Negative. Negative for photophobia, pain and visual disturbance.
Respiratory: Negative for cough, choking and shortness of breath.
Cardiovascular: Negative for chest pain, palpitations and leg swelling.
Gastrointestinal: Negative for abdominal pain and vomiting.
Endocrine: Negative. Negative for cold intolerance.
Genitourinary: Negative for dysuria, flank pain and urgency.
Musculoskeletal: Negative for back pain, gait problem, neck pain and neck stiffness.
Skin: Negative for rash.
Allergic/Immunologic: Negative. Negative for immunocompromised state.
Neurological: positive for falls, imbalance.
Psychiatric/Behavioral: Positive for anxiety.
General: Well developed. In no acute distress.
Cardio: Regular rate and rhythm without murmur. Extremities are without cyanosis or edema.
Neuro:
Mental Status: Alert, oriented to person, place, and date. Normal attention and recall. Good fund of knowledge. Follows complex requests across the midline. Comprehension, naming, and repetition intact. Immediate and delayed recall 3/3.
Cranial Nerves: . Pupils are equally round and reactive to light. EOMs full. Visual saleh full to confrontation. No ptosis. No nystagmus. V1-V3 intact to light touch and pinprick bilaterally, symmetric. Face symmetric. Normal hearing AU.
The palate elevated well. SCMs and traps 5/5. Tongue midline. No dysarthria.
Motor: Normal bulk and tone. No pronator or arm drift. Strength 5/5 throughout. No clonus.
Reflexes: 3+ throughout the upper extremities and knees. 2/2 in AJs. Plantar responses flexor bilaterally. Neg Mayfield's BL.
Sensory: Normal vibration and JPS.
Coordination: No dysmetria or tremor.
Gait: normal stance, base. Able to tandem and jump on each foot.
Pes cavus BL
Assessment and Plan:
I. Recurrent falls.
II. Hyperreflexia.
III. Cognitive complaints.
-Fall precautions
-PT
-Insulin level
-T spine MRI wo lynn(can be done as OP)
-OP neurology follow up in 1-2 weeks
I personally reviewed all radiology and labs along with past medical records pertinent to current medical problems. Total time spent in patient care is 36 minutes.
Objective Data
Vital Signs
Temp Pulse Resp BP Pulse Ox
36.7 C 80 16 116/78 99
05/26/24 07:55 05/26/24 07:55 05/26/24 07:55 05/26/24 07:55 05/26/24 07:55
Lab Results
05/26/24 05:17
05/26/24 05:17
Sodium 138 mmol/L (135-145) 05/26/24 05:17
Potassium 4.3 mmol/L (3.5-5.1) 05/26/24 05:17
BUN 6 mg/dl (7-17) L 05/26/24 05:17
Glucose 74 mg/dl (70-99) 05/26/24 05:17
Calcium 9.6 mg/dl (8.4-10.2) 05/26/24 05:17
LDL Cholesterol, Calc 161 mg/dl 05/24/24 07:32
Vitamin B12 437 pg/ml (592-931) 05/24/24 07:32
Ur Buprenorphine Negative (Negative) 05/23/24 19:50
Patient Allergies
No Known Allergies Allergy (Verified 05/23/24 16:46)
Vital Signs and Labs
-
Vital Signs and Labs:
Vital Signs
Temp Pulse Resp BP Pulse Ox
36.7 C 80 16 116/78 99
05/26/24 07:55 05/26/24 07:55 05/26/24 07:55 05/26/24 07:55 05/26/24 07:55
Lab Results
05/26/24 05:17
05/26/24 05:17
Sodium 138 mmol/L (135-145) 05/26/24 05:17
Potassium 4.3 mmol/L (3.5-5.1) 05/26/24 05:17
BUN 6 mg/dl (7-17) L 05/26/24 05:17
Glucose 74 mg/dl (70-99) 05/26/24 05:17
Calcium 9.6 mg/dl (8.4-10.2) 05/26/24 05:17
LDL Cholesterol, Calc 161 mg/dl 05/24/24 07:32
Vitamin B12 437 pg/ml (148-931) 05/24/24 07:32
Ur Buprenorphine Negative (Negative) 05/23/24 19:50
Medications
-
Medications:
Generic Name Dose Route Start Last Admin
Trade Name Freq PRN Reason Stop Dose Admin
Acetaminophen 650 mg 05/23/24 22:31
Acetaminophen 325 Mg Tablet PO 06/20/24 22:30
Q4HPRN PRN
Mild Pain / Temp > 101
Aspirin 81 mg 05/24/24 08:00 05/26/24 08:38
Aspirin 81 Mg Chewable Tablet PO 06/21/24 07:59 81 mg
DAILY LAYLA Administration
Atorvastatin Calcium 40 mg 05/24/24 18:00 05/25/24 17:24
Atorvastatin (Lipitor) 40 Mg Tablet PO 06/21/24 17:59 40 mg
QPM LAYLA Administration
Clonazepam 2 mg 05/24/24 09:45 05/26/24 10:35
Clonazepam 1 Mg Tablet PO 06/21/24 09:44 2 mg
BIDPRN PRN Administration
Anxiety
Dextrose 12.5 grams 05/25/24 12:19
Dextrose 50% (0.5 Grams/Ml) 50 Ml Syringe IV 06/22/24 12:18
[id number] PRN
hypoglycemia
Protocol
Duloxetine HCl 60 mg 05/24/24 08:00 05/26/24 08:38
Duloxetine Delayed Release 60 Mg Capsule PO 06/21/24 07:59 60 mg
DAILY LAYLA Administration
Glucagon 1 mg 05/25/24 12:19
Glucagon 1 Mg Vial IM 06/22/24 12:18
PRN PRN
hypoglycemia
Protocol
Insulin Aspart 0 units 05/25/24 16:30 05/26/24 08:38
Insulin Aspart Low Resistance 300 Units/3 Ml Pen.Injctr SC 06/22/24 16:29 Not Given
AC LAYLA
Protocol
Lamotrigine 200 mg 05/24/24 08:00 05/26/24 08:38
Lamotrigine 100 Mg Tablet PO 06/21/24 07:59 200 mg
BID LAYLA Administration
Levothyroxine Sodium 137 mcg 05/24/24 06:00 05/26/24 05:23
Levothyroxine 137 Mcg Tablet PO 06/21/24 05:59 137 mcg
DAILY @ 0600 LAYLA Administration
Sodium Chloride 0 flush 05/23/24 22:00
Sodium Chloride 0.9% (Flush) Syringe IV 06/20/24 21:59
PER PROTOCOL LAYLA
Home Medications
-
Home Medications
lamotrigine 200 mg tablet (Lamictal) 200 mg PO BID #60 tabs 11/22/22
duloxetine 60 mg capsule,delayed release 60 mg PO DAILY Mental Health/Anxiety 05/02/24
zolpidem 10 mg tablet 10 mg PO HSPRN PRN sleep 05/02/24
carisoprodol 350 mg tablet 350 mg PO TIDPRN PRN muscle spasms 05/23/24
clonazepam 2 mg tablet (Klonopin) 2 mg PO BIDPRN PRN Anxiety 05/23/24
duloxetine 30 mg capsule,delayed release 30 mg PO DAILY Depression 05/23/24
levothyroxine 137 mcg tablet 137 mcg PO DAILY Thyroid 05/23/24
ondansetron HCl 4 mg tablet 4 mg PO Q6HPRN PRN nausea 05/23/24
--- NOTE | 2024-05-26 12:01 | W.PN.HOSP.TC ---
Addendum entered and electronically signed by Arnulfo Williamson MD 05/26/24 12:14:
Time of discharge 36 minutes
Original Note:
Today's Communication/Plan
-
Monitor vital signs
see plan
Outpatient T-spine MRI with PCP
Neurology follow-up
Continue aspirin, statin
Discharge today
Assessment / Plan
Assessment / Plan
General: Other (39y F in no acute distress.)
HEENT: Moist mucous membranes
Respiratory: Clear; No Wheezes, Rales or Rhonchi
Cardiac: S1/S2 and Regular Rhythm; No Murmur
GI: Soft, Non Tender, Non Distended and Normal Bowel Sounds
Musculoskeletal: No Clubbing, No Cyanosis and No Edema
Neuro: AO x 3, Nonfocal/grossly intact
Psych: No Agitated or Anxious
Dizziness
Ataxia / Frequent Falls
Also complaining of intermittent vertigo
- TFTs are improved from prior; however, symptoms are even worse now than during last hospitalization.
- PT / vestibular evaluation.
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 Neurology following. daily baby aspirin,statin. MRI thoracic spine per neuro; still not done. neuro now ok with outpatient MRI with pcp
echo without acute abnormality
neuro following
Orthostatic now improved; dc further fluids, feeling better
UDS positive for benzos which she takes at home and marijuana
b12 in 400s
Hypothyroidism
Graves' Disease s/p Thyroidectomy
- Stable. Free T4 improved from prior on lower dose of T4 supplementation.
- TSH remains undetectable.
Hypoglycemia
improved with orange juice
monitor
Anxiety / Depression
- Stable. Continue duloxetine at original / lower dose for now.
History of Seizure Disorder
- No recent seizures per patent
- Continue current medications.
- Check lamictal level.
DVT Prophylaxis: SCDs
Code Status: Full
Anticipated Discharge: Today
Subjective/Interval History
-
Date of Service: May 26, 2024
denies pain
Objective Data
-
Labs:
Laboratory Results
05/26/24
05:17
WBC 4.1 L
Hgb 12.9
Hct 36.3 L
Plt Count 228
Sodium 138
Potassium 4.3
Chloride 104
Carbon Dioxide 21 L
BUN 6 L
Creatinine 0.7
Glucose 74
Calcium 9.6
Vital Signs:
Vital Signs
Temp Pulse Resp BP Pulse Ox
98.0 F 80 16 116/78 99
05/26/24 07:55 05/26/24 07:55 05/26/24 07:55 05/26/24 07:55 05/26/24 07:55
I&O
05/25/24 05/26/24 05/27/24
06:59 06:59 06:59
Intake Total 2 / 2 1200 / 1200
Output Total 160 / 160
Balance -158 / -158 1200 / 1200
--- NOTE | 2024-05-26 12:13 | W.DCSUMMARY ---
Discharge Summary
Discharge Data
Date of Admission: 05/23/24
Date of Discharge: 05/26/24
-
Pending Results: No
Hospital Course
39-year-old female with past medical history of anxiety/depression, seizure, Graves' disease status post thyroidectomy, frequent falls came to the hospital with dizziness and ataxia. Patient was seen by neurology throughout hospitalization.
Patient had an MRI of the brain which showed old cerebellar small lacunar infarct. Patient was then started on aspirin and statin. Patient UDS was done which was positive for benzos and marijuana. Patient was evaluated by physical therapy who
recommended home health. Patient was initially orthostatic positive which improved with fluids. She also had improvement in her ataxia and dizziness. Neurology recommended patient to get outpatient cervical and thoracic MRI which patient
instructed to follow-up with PCP. Once her symptoms continue to improve, she was then discharged home with instructions to follow-up with all her physicians outpatient.
Discharge Plan
-
Patient Disposition: Home (Routine Discharge)
Discharge Diagnosis/Procedures: Ambulatory dysfunction
Dizziness/ataxia/frequent falls likely secondary to old cerebellar small lacunar infarct
Hypothyroidism
Hypoglycemia
Diet: As tolerated
Activity: As tolerated
Driving Restrictions: As prior to admission
Bathing Restrictions: None
Activity Restrictions/Additional Instructions:
Please get MRI cervical and thoracic spine with your primary care provider and neurology
Referrals:
Fareed Mendez DO [Family Provider] - in less than 1 week
Alee Cee MD [Active] -
Prescriptions:
New
atorvastatin 40 mg Tablet
40 mg PO QPM Qty: 30 0RF
aspirin 81 mg Tablet,Chewable
81 mg PO DAILY Qty: 30 0RF
Continued
lamotrigine [Lamictal] 200 mg tablet
200 mg PO BID Qty: 60 0RF
zolpidem 10 mg Tablet
10 mg PO HSPRN PRN (Reason: sleep)
duloxetine 60 mg Capsule,Delayed Release(Dr/Ec)
60 mg PO DAILY
Rx Instructions:
take with 30mg for total of 90mg
carisoprodol 350 mg Tablet
350 mg PO TIDPRN PRN (Reason: muscle spasms)
ondansetron HCl 4 mg Tablet
4 mg PO Q6HPRN PRN (Reason: nausea)
duloxetine 30 mg Capsule,Delayed Release(Dr/Ec)
30 mg PO DAILY
Rx Instructions:
take with 60mg for total of 90mg
levothyroxine 137 mcg tablet
137 mcg PO DAILY
clonazepam [Klonopin] 2 mg tablet
2 mg PO BIDPRN PRN (Reason: Anxiety)
Discharge Orders:
Discharge Patient (As Directed); Ordered 05/26/24
Ordered By: Arnulfo Williamson
Discharge Date and Time
Discharge Date/Time: 05/26/24 13:47
Print Language: SENEGALESE
== END 2024-05-26 13:47 | disposition home or self-care (01) ==
LOC: 4 EAST ACU 21:21
PROVIDERS: Clinical Nurse Specialist Family Health; Student in an Organized Health Care Education/Training Program; ADMITTING PHYSICIAN Hospitalist; ATTENDING PHYSICIAN Internal Medicine; CONSULT PHYSICIAN Psychiatry & Neurology Neurology; EMERGENCY PHYSICIAN Emergency Medicine; FAMILY PHYSICIAN Family Medicine
DX: R42 Dizziness and giddiness (principal); R26.81 Unsteadiness on feet; R11.0 Nausea; E89.0 Postprocedural hypothyroidism; M54.9 Dorsalgia, unspecified; R29.6 Repeated falls; H53.8 Other visual disturbances; R47.1 Dysarthria and anarthria; G89.29 Other chronic pain; W10.8XXA Fall (on) (from) other stairs and steps, initial encounter; Y93.89 Activity, other specified; Y92.008 Other place in unspecified non-institutional (private) residence as the place of occurrence of the external cause; E16.2 Hypoglycemia, unspecified; R29.2 Abnormal reflex; R94.31 Abnormal electrocardiogram [ECG] [EKG]; G40.909 Epilepsy, unspecified, not intractable, without status epilepticus; F41.9 Anxiety disorder, unspecified; F32.A Depression, unspecified; G43.909 Migraine, unspecified, not intractable, without status migrainosus; E05.00 Thyrotoxicosis with diffuse goiter without thyrotoxic crisis or storm; R26.89 Other abnormalities of gait and mobility; Q75.8 Other specified congenital malformations of skull and face bones; F41.1 Generalized anxiety disorder; G47.00 Insomnia, unspecified; Z91.81 History of falling; Z56.0 Unemployment, unspecified; Z86.73 Personal history of transient ischemic attack (TIA), and cerebral infarction without residual deficits; Z87.442 Personal history of urinary calculi; Z83.79 Family history of other diseases of the digestive system; Z90.89 Acquired absence of other organs; Z82.49 Family history of ischemic heart disease and other diseases of the circulatory system; Z83.49 Family history of other endocrine, nutritional and metabolic diseases; Z79.890 Hormone replacement therapy
CPT/HCPCS: 70450; 70553; 80048; 80053; 80061; 80175; 80306; 80307; 81003; 82607; 82728; 82746; 82962; 83036; 83540; 83550; 84439; 84443; 84466; 84484; 85025; 85027; 93005; 93306; 97162; 97166; 99285; A9575; G0378

== ENCOUNTER 2024-06-14 08:37 | Emergency (ER) | payer OTHER, SELFPAY ==
[2024-06-14 08:39] VITALS: BP 144/97
[2024-06-14 09:10] VITALS: BMI 27.7
--- NOTE | 2024-06-14 09:27 | ED.GENMED ---
History of Present Illness
General
Chief Complaint: Dizziness
Time Seen by Provider: 06/14/24 08:45
History of Present Illness
History of Present Illness:
Patient presents to the emergency department with vertigo and ataxia. She was admitted at the end of last month with similar symptoms. She was diagnosed with a small lacunar infarct in the cerebellum. She has not yet followed up with neurology or
primary doctor. She is supposed to get an MRI of her spine to rule out MS or other demyelinating disease. Notes that her symptoms became slightly worse this morning. She was confused and slurring her speech and having ataxia. These were the same
symptoms she was having prior admission
Past History
Past History
ED Past Medical History: Seizures, Hyperthyroidism, Hypothyroidism, Psychiatric (Anxiety, depression) and Other (migraines, Back pain, Renal calculus)
ED Past Surgical History: Orthopedic (Low back surgery) and Other (Thyroidectomy)
Social History
Tobacco: Non-smoker
Alcohol: None
Personal:
Living: with family
Employment: Employed
Family History
Family History: Other (Family history of diverticulosis); Negative Diabetes
Phy Exam
Physical Exam
Physical Exam:
GENERAL APPEARANCE: NAD, well developed/ well nourished
EYES lids/conjunctiva normal
EARS/NOSE/THROAT Mucous membranes moist, uvula midline without oral pharyngeal erythema, exudate or swelling
HEAD/NECK normocephalic atraumatic, neck is supple.
RESPIRATORY respiratory effort normal, speaks in full sentences, no accessory muscle use. Lungs clear to auscultation without rhonchi, wheezes, rales
CARDIAC Regular rate and rhythm, no edema.
ABDOMINAL Soft, ND/NT.
MUSCLES/EXTREMITIES No abnormal range of motion, no swelling.
SKIN Warm, pink and dry. No rashes
NEUROLOGICAL 3 beats of nystagmus bilaterally. Walking around room without ataxia, normal gait. Mild LUE dysmetria. Speech is clear and appropriate. Normal level of consciousness. 5/5 strength in all extremities. SILT throughout
PSYCH Normal mood and affect. Judgement/competence is appropriate
Course
Orders/Labs/Results
Orders:
Orders
06/14/24 09:25
CT Head W/o Iv Contrast Urgent
Comment:
Reason For Exam: vertigo
Diphenhydramine [Benadryl] 25 mg IV NOW STA
Metoclopramide [Reglan] 10 mg IV NOW STA
06/14/24 09:26
Electrocardiogram (*1) Stat
Reason for Study: Other
Other Reason for Exam: neuro symptoms
06/14/24 09:44
Complete Blood Count/With Diff Urgent
Comprehensive Metabolic Panel Urgent
Abnormal Lab Results
06/14/24
09:44
WBC 4.5 L 10^3/uL
(4.8-10.8)
RBC 3.90 L 10^6/uL
(4.20-5.40)
Hgb 11.2 L g/dL
(12.0-16.0)
Hct 31.7 L %
(37.0-47.0)
Absolute Lymphs (auto) 0.9 L 10^3/uL
(1.2-3.4)
Lymphocytes % 20.1 L %
(20.5-51.1)
BUN 5 L mg/dl
(7-17)
Total Protein 6.2 L g/dl
(6.3-8.2)
06/14/24 09:44
06/14/24 09:44
Vital Signs
Initial and Last Documented VS:
Initial Vital Signs
Temp Pulse Resp BP Pulse Ox
98.2 F 90 16 144/97 98
06/14/24 08:39 06/14/24 08:39 06/14/24 08:39 06/14/24 08:39 06/14/24 08:39
Last Documented Vital Signs
Temp Pulse Resp BP Pulse Ox
98.2 F 71 15 125/82 98
06/14/24 08:39 06/14/24 11:01 06/14/24 11:01 06/14/24 11:01 06/14/24 11:01
*Critical Care Note
Total Time (30-74mins, 75-104mins- exclusive of procedures): Not Applicable
ED Attending Note
ED Attending Note
ED Attending Note:
Patient with known cerebellar infarct, currently being worked up for other neurological diseases presents with continued symptoms. Will check labs, CT, treat symptomatically and reassess
-
Portions of this chart may have been created with voice recognition software.� Occasional wrong word or��sound alike� substitutions may have occurred due to the inherent limitations of voice recognition software.
Discharge Plan
Departure
Patient Disposition: Home (Routine Discharge)
Date of Disposition: 06/14/24
Time of Disposition: 11:13
Patient with high blood pressure during this ER visit?: Yes
Discharge Problem:
Dizziness
Instructions: Vestibular Exercises, Vertigo ED
Prescriptions:
No Action
zolpidem 10 mg Tablet
10 mg PO HSPRN PRN (Reason: sleep)
duloxetine 60 mg Capsule,Delayed Release(Dr/Ec)
60 mg PO DAILY
Rx Instructions:
take with 30mg for total of 90mg
carisoprodol 350 mg Tablet
350 mg PO TIDPRN PRN (Reason: muscle spasms)
ondansetron HCl 4 mg Tablet
4 mg PO Q6HPRN PRN (Reason: nausea)
duloxetine 30 mg Capsule,Delayed Release(Dr/Ec)
30 mg PO DAILY
Rx Instructions:
take with 60mg for total of 90mg
levothyroxine 137 mcg tablet
137 mcg PO DAILY
clonazepam [Klonopin] 2 mg tablet
2 mg PO BIDPRN PRN (Reason: Anxiety)
atorvastatin 40 mg tablet
40 mg PO QPM
lamotrigine [Lamictal] 200 mg tablet
200 mg PO BID
aspirin 81 mg tablet,chewable
81 mg PO DAILY
Referrals:
Fareed Mendez, DO [Family Provider] -
Activity Restrictions/Additional Instructions:
Please follow-up closely with your neurologist. Call today to schedule an appointment. Return to the emergency department with new or worsening symptoms.
Interventions
Interventions:
*Risk Screen - Suicide Last Done: 06/14/24 08:39
*Neglect/Abuse Screening Last Done: 06/14/24 08:39
ED- Fall Risk Assessment Last Done: 06/14/24 08:49
*ED COVID-19 Vaccine History Last Done: 06/14/24 08:49
*Nursing Disposition Last Done: 06/14/24 11:24
ED- Neurological Assessment Last Done: 06/14/24 08:55
Discharge Date and Time
Discharge Date/Time: 06/14/24 11:25
Print Language: YI
[2024-06-14 09:42] VITALS: BP 104/87
[2024-06-14 09:54] LABS: % Basophils 0.7 % (0-2); % Eosinophils 1.6 % (0-6); % Immature Granulocytes 0.2 % (0-0.5); % Lymphocytes 20.1 % (20.5-51.1); % Monocytes 6.9 % (1.7-9.3); % Neutrophils 70.5 % (42.2-75.2); Absolute Eosinophils 0.1 10^3/uL (0-0.7); Absolute Lymphocytes 0.9 10^3/uL (1.2-3.4); Absolute Monocytes 0.3 10^3/uL (0.1-0.6); Absolute Neutrophils 3.2 10^3/uL (1.4-6.5); Hematocrit 31.7 % (37.0-47.0); Hemoglobin 11.2 g/dL (12.0-16.0); Mean Corp Hgb Conc. 35.3 g/dL (33.0-37.0); Mean Corpuscular Hgb 28.7 pg (27.0-31.0); Mean Corpuscular Volume 81.3 fL (81.0-99.0); Mean Platelet Volume 8.9 fL (7.4-10.4); Nucleated Red Blood Cells % 0 %; Platelet Count 294 10^3/uL (130-400); Red Cell Dist. Width 12.7 % (11.5-14.5); White Blood Cell Count 4.5 10^3/uL (4.8-10.8)
[2024-06-14 10:00] VITALS: BP 120/85
[2024-06-14] MEDS: REGLAN 10 MG IV (10:01)
[2024-06-14] MEDS: BENADRYL 25 MG IV (10:01)
[2024-06-14 10:06] LABS: ALT (SGPT) 12 U/L (0-35); AST (SGOT) 18 U/L (14-36); Albumin 4.2 g/dl (3.5-5.0); Alkaline Phosphatase 66 U/L (38-126); Blood Urea Nitrogen 5 mg/dl (7-17); Calcium 9.6 mg/dl (8.4-10.2); Carbon Dioxide 24 mmol/L (22-30); Chloride 105 mmol/L (98-107); Estimated Creatinine Clearance 110 ml/min; Glucose 74 mg/dl (70-99); Potassium 3.7 mmol/L (3.5-5.1); Sodium 141 mmol/L (135-145); Total Bilirubin 0.3 mg/dl (0.2-1.3); Total Protein 6.2 g/dl (6.3-8.2); eGFR > 60.00
[2024-06-14 11:00] VITALS: BP 125/82
[2024-06-14 11:01] VITALS: BP 125/82
== END 2024-06-14 11:25 | disposition home or self-care (01) ==
LOC: EMR 08:37
PROVIDERS: EMERGENCY PHYSICIAN Emergency Medicine; FAMILY PHYSICIAN Family Medicine
DX: R27.0 Ataxia, unspecified (principal)
CPT/HCPCS: 99285; 96374; 96375; 70450; 80053; 85025; 93005

== ENCOUNTER 2025-02-13 23:19 | Emergency (ER) | payer OTHER, SELFPAY ==
[2025-02-13 23:20] VITALS: BMI 25.6
[2025-02-13 23:23] VITALS: BP 140/92
[2025-02-14 00:02] LABS: % Basophils 0.7 % (0-2); % Eosinophils 4.3 % (0-6); % Immature Granulocytes 0.2 % (0-0.5); % Lymphocytes 21.1 % (20.5-51.1); % Monocytes 5.6 % (1.7-9.3); % Neutrophils 68.1 % (42.2-75.2); Absolute Eosinophils 0.2 10^3/uL (0-0.7); Absolute Lymphocytes 1.1 10^3/uL (1.2-3.4); Absolute Monocytes 0.3 10^3/uL (0.1-0.6); Absolute Neutrophils 3.7 10^3/uL (1.4-6.5); Hematocrit 36.5 % (37.0-47.0); Hemoglobin 13.3 g/dL (12.0-16.0); Mean Corp Hgb Conc. 36.4 g/dL (33.0-37.0); Mean Corpuscular Hgb 30.9 pg (27.0-31.0); Mean Corpuscular Volume 84.9 fL (81.0-99.0); Mean Platelet Volume 9.1 fL (7.4-10.4); Nucleated Red Blood Cells % 0 %; Platelet Count 305 10^3/uL (130-400); Red Cell Dist. Width 11.3 % (11.5-14.5); White Blood Cell Count 5.4 10^3/uL (4.8-10.8)
[2025-02-14 00:24] LABS: ALT (SGPT) 14 U/L (0-35); AST (SGOT) 17 U/L (14-36); Alkaline Phosphatase 54 U/L (38-126); Blood Urea Nitrogen 11 mg/dl (7-17); Calcium 10.5 mg/dl (8.4-10.2); Carbon Dioxide 19 mmol/L (22-30); Chloride 109 mmol/L (98-107); Estimated Creatinine Clearance 92 ml/min; Glucose 85 mg/dl (70-99); Potassium 3.4 mmol/L (3.5-5.1); Sodium 142 mmol/L (135-145); Total Bilirubin 0.4 mg/dl (0.2-1.3); Total Protein 7.4 g/dl (6.3-8.2); eGFR > 60.00
[2025-02-14 01:40] VITALS: BP 111/83
[2025-02-14 02:00] VITALS: BP 117/85
[2025-02-14 04:15] VITALS: BP 122/86
[2025-02-14 05:00] VITALS: BP 106/74
--- NOTE | 2025-02-14 05:09 | ED.GENMED ---
History of Present Illness
General
Chief Complaint: Seizure
Source: patient, family (Mother who is at bedside), previous radiology exam and previous hospital records
Exam Limitations: none
Time Seen by Provider: 02/14/25 02:09
Nursing documentation reviewed up to this point in time: agreed with
History of Present Illness
History of Present Illness:
This is a 40-year-old woman with history of seizure disorder, initially diagnosed 2018. Chronically maintained on Lamictal 200 mg twice daily. Was started on Topamax 50 mg once daily in September of this year due to newer onset of what she calls a
different type of seizure with hospitalization at [facility] in September. She states she underwent unremarkable EEG. 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
She was evaluated by a new neurologist from [facility] in [place] just 1 week ago.
Tonight while sleeping she suffered her more typical grand mal seizure, partially witnessed by her . She did not fall out of bed. She has no recollection of the seizure but upon waking she immediately became nauseated and vomited once which
is typical of her grand mal seizures which prior to tonight occurred perhaps 6 months ago.
She admits to biting her lower lip and has sustained a superficial abrasion to her lower lip without bleeding. She denies tongue pain. She was not incontinent of bowel nor bladder.
She admits to mild ache of her upper arms, no headache, no neck nor back pain.
She has been compliant with twice daily Lamictal as well as once daily Topamax.
She has not had Lamictal level assessed recently.
Past History
Past History
ED Past Medical History: CVA (Small cerebellar noted on MRI of the brain lacunar infarct April 2024.), Seizures, Hyperthyroidism, Hypothyroidism, Psychiatric (Anxiety, depression) and Other (migraines, Back pain, Renal calculus)
ED Past Surgical History: Orthopedic (Low back surgery) and Other (Thyroidectomy)
Social History
Tobacco: Non-smoker
Alcohol: None
Personal:
Living: with family
Employment: Not employed
Family History
Family History: Other (Family history of diverticulosis); Negative Diabetes
Phy Exam
Physical Exam
Physical Exam:
GENERAL: 40-year-old woman appears her stated age, awake and alert, pleasant, appears in no acute distress. Mother is accompanying.
EYE: pupils equal and reactive. anicteric. The head is normocephalic, atraumatic.
NECK: Supple, nontender, no meningismus, no significant adenopathy.
ENT: posterior pharynx is clear, oral mucosa is moist. Tongue is midline, without abrasion nor hematoma. There is a very superficial abrasion mid lower lip. No soft tissue swelling. No bleeding. TM clear b/l, nares patent.
CARDIAC: Regular rate and rhythm. no murmur.
LUNGS: Clear breath sounds bilaterally, no acute respiratory distress, no wheezes/rales/rhonchi
ABDOMEN: Soft, nondistended, without focal tenderness, no r/g, no cvat. normoactive BS.
NEUROLOGICAL: Alert and oriented x3, no focal neuro deficits.
SKIN: Warm and dry, normal color, skin intact. No rash.
MUSCULOSKELETAL: No C/C/E. peripheral pulses are full and equal b/l. No palpable tenderness.
PSYCH: Normal and appropriate interaction.
Course
Orders/Labs/Results
Orders:
Orders
02/13/25 23:48
CMP [Comprehensive Metabolic Panel] Urgent
Complete Blood Count/With Diff Urgent
02/14/25 00:25
[facility] [Rapid Point of Care EEG (ED/ICU ONLY)] Q1H
Indications for use:: History of Epilepsy
02/14/25 02:31
CT Head W/o Iv Contrast Urgent
Comment:
Reason For Exam: acute seizure tonight. headache. dizziness
02/14/25 05:10
Add On- LAB Urgent
Tests Added?: Lamictal level
02/14/25 05:32
Lamotrigine (Lamictal) [S] Routine
Abnormal Lab Results
02/13/25
23:48
Hct 36.5 L %
(37.0-47.0)
RDW 11.3 L %
(11.5-14.5)
Absolute Lymphs (auto) 1.1 L 10^3/uL
(1.2-3.4)
Potassium 3.4 L mmol/L
(3.5-5.1)
Chloride 109 H mmol/L
(98-107)
Carbon Dioxide 19 L mmol/L
(22-30)
Calcium 10.5 H mg/dl
(8.4-10.2)
02/13/25 23:48
02/13/25 23:48
Vital Signs
Initial and Last Documented VS:
Initial Vital Signs
Temp Pulse Resp BP Pulse Ox
97.4 F 110 22 140/92 100
02/13/25 23:23 02/13/25 23:23 02/13/25 23:23 02/13/25 23:23 02/13/25 23:23
Last Documented Vital Signs
Temp Pulse Resp BP Pulse Ox
97.4 F 81 13 106/74 99
02/13/25 23:23 02/14/25 05:15 02/14/25 05:15 02/14/25 05:00 02/14/25 05:15
MDM/Problems Addressed
Differential Diagnosis Includes:
History most consistent with breakthrough seizure.
Patient does have history of ataxia, frequent dizziness with previous MRI of the brain April 2024 showing a tiny lacunar infarct right cerebellum.
Patient notes recent visit with a new neurologist from [facility] 1 week ago and states neurologist requests CT of the head if recurrent seizure recurs.
She remains hemodynamically stable. No evidence of arrhythmia on monitor technician.
Labs reveal mild metabolic acidosis, consistent with recent seizure. Very mild hypokalemia.
Cerebell EEG in place. Monitoring thus far showing no evidence of seizure activity.
Will check Lamictal level and will check CT of the head.
Will continue to observe for recurrent seizures.
If unremarkable we will plan for discharge to home with prompt follow-up with neurologist.
As seizures appear to be overall well-controlled, would not adjust nor add medications at this point.
Chronic conditions affecting care: Neurological disorder and Psychiatric illness
*Radiology
Radiology exam reviewed: radiology read reviewed (CT of the head is unremarkable.)
*Pulse Oximetry
SaO2: 100
Oxygen Mode of Delivery: Room air
Patient hypoxic: no
*Developer Support Engineer Interpretation
Rate: normal
Interpretation: normal
Rhythm: sinus
*Critical Care Note
Total Time (30-74mins, 75-104mins- exclusive of procedures): Not Applicable
Update Note
Update Note:
05:00
Patient has been resting comfortably.
No seizure activity since arrival to the ED.
[facility]ere[facility] bedside EEG monitoring for 2 hours�no evidence of seizure activity.
CT of the head is unremarkable, unchanged from previous.
Lamictal level has been added.
As breakthrough seizures appear to be somewhat rare in occurrence with last occurring 6 months ago, would not recommend changing her medications at this point.
Patient chronically does not drive.
Will discharge to home with recommendation she touch base with her neurologist today to discuss follow-up.
ED Attending Note
-
Portions of this chart may have been created with voice recognition software.� Occasional wrong word or��sound alike� substitutions may have occurred due to the inherent limitations of voice recognition software.
Discharge Plan
Departure
Patient Disposition: Home (Routine Discharge)
Date of Disposition: 02/14/25
Time of Disposition: 05:11
Patient with high blood pressure during this ER visit?: No
Condition: Good
Discharge Problem:
Breakthrough seizure
Instructions: Seizures, Adult (DC)
Prescriptions:
No Action
zolpidem 10 mg Tablet
10 mg PO HSPRN PRN (Reason: sleep)
duloxetine 60 mg Capsule,Delayed Release(Dr/Ec)
60 mg PO DAILY
Rx Instructions:
take with 30mg for total of 90mg
carisoprodol 350 mg Tablet
350 mg PO TIDPRN PRN (Reason: muscle spasms)
ondansetron HCl 4 mg Tablet
4 mg PO Q6HPRN PRN (Reason: nausea)
duloxetine 30 mg Capsule,Delayed Release(Dr/Ec)
30 mg PO DAILY
Rx Instructions:
take with 60mg for total of 90mg
levothyroxine 137 mcg tablet
137 mcg PO DAILY
clonazepam [Klonopin] 2 mg tablet
2 mg PO BIDPRN PRN (Reason: Anxiety)
atorvastatin 40 mg tablet
40 mg PO QPM
lamotrigine [Lamictal] 200 mg tablet
200 mg PO BID
aspirin 81 mg tablet,chewable
81 mg PO DAILY
Referrals:
Fareed Mendez, [Family Provider, Family Practice] - Call in 1-3 days for appt
Activity Restrictions/Additional Instructions:
Call your neurologist office today to discuss follow-up for recent breakthrough seizure.
A Lamictal level has been ordered, should result within the next 2 to 3 days.
Interventions
Interventions:
*Risk Screen - Suicide Last Done: 02/13/25 23:23
*General Assessment Last Done: 02/14/25 00:35
*Neglect/Abuse Screening Last Done: 02/13/25 23:23
*ED- Fall Risk Assessment Last Done: 02/14/25 05:29
*ED COVID-19 Vaccine History Last Done: 02/14/25 00:35
*Nursing Disposition Last Done: 02/14/25 05:29
ED- Cardiac Assessment Last Done: 02/14/25 00:29
ED- Neurological Assessment Last Done: 02/14/25 00:29
ED- Pulmonary Assessment Last Done: 02/14/25 00:29
Discharge Date and Time
Discharge Date/Time: 02/14/25 05:38
Print Language: TURKMEN
--- NOTE | 2025-02-15 08:29 | W.RAPID.EEG ---
Rapid EEG
-
Procedure Date: 02/14/25
Results:
ELECTROENCEPHALOGRAM REPORT.
Test Date:02/14/2026
History: This is a 40-year-old woman with recurrent spells.
Medications: Clonazepam, zolpidem.
Patient Consent:�Correct patient identified.
Description of Procedure:�This EEG was obtained using a 10-lead, 8-channel system positioned circumferentially without any parasagittal coverage (rapid EEG). Computer-selected EEG is reviewed, as well as background features and overall clinically
significant events. The Clarity algorithm was utilized and implemented to provide analysis of underlying activity and seizure/status detection to facilitate reading.
Description of Recording:�During maximal wakefulness, the background activity of this EEG consisted of a posterior dominant rhythm of approximately 9 Hz that is well-developed, symmetric, and reactive to eye opening. This background activity slows
with the onset of drowsiness, but no sleep architecture is present throughout the recording. No epileptiform discharges, focal slowing, or electrographic seizures were noted throughout the recording. Excessive beta activity was present.
Impression:�Normal EEG during the awake and drowsy state.
Comment:�A normal EEG does not rule out the diagnosis of a seizure disorder; clinical correlation is advised. If there is still persistent suspicion for continued seizure-like activity, it is advised to obtain an electroencephalogram with the 10-20
International system for improved spatial resolution and parasagittal coverage.
--- NOTE | 2025-02-15 12:52 | W.RAPID.EEG ---
Rapid EEG
-
Procedure Date: 02/14/25
Results:
Point of Care EEG Procedure Note
Patient name: MIHIR THORPE
Medical ID: [id number]
Date of : 1985
Age: 40
IMPRESSION:
No evidence of status epilepticus
Recording 1 Duration: 2025-02-14 00:24:20 - 2025-02-14 02:39:23
Recording Total Time: 02:15:03 (135 minutes)
Ordering Physician: TAQUERIA
Recording Technique: This EEG was obtained using a 10 lead, 8 channel circumferential rapid EEG with no parasagittal coverage.
Performed with Monika Lucas Status Epilepticus Monitor, ICD-10 [id number]
Clinical History: MIHIR THORPE is a 40 year old Prior Seizure patient undergoing EEG to screen for non-convulsive status epilepticus.
Primary Indication: Prior Seizure
Location: ED
Background: The background was continuous of overall medium voltage generally symmetric, variable and reactive
Report prepared by: Jimbo Pineda
Report generated on: Feb 15, 2025 12:50 PM UTC-4
== END 2025-02-14 05:38 | disposition home or self-care (01) ==
LOC: EMR 23:19
PROVIDERS: EMERGENCY PHYSICIAN Emergency Medicine; FAMILY PHYSICIAN Family Medicine
DX: G40.802 Other epilepsy, not intractable, without status epilepticus (principal); E03.9 Hypothyroidism, unspecified; Z79.899 Other long term (current) drug therapy; S00.511A Abrasion of lip, initial encounter; X58.XXXA Exposure to other specified factors, initial encounter
CPT/HCPCS: 99284; 70450; 80053; 80175; 85025